=== PATIENT | male | born 1945 | race Caucasian/White ===

== ENCOUNTER 2018-05-27 12:47 | Inpatient (IN) | payer MEDICARE, OTHER ==
[~2018-05-27] VITALS: Ht 182.9 cm; Wt 92.5 kg
[~2018-05-27 12:47] MED LIST: NKM; NORCO 5-325 TA1 EACH ORAL
--- NOTE | 2018-05-27 12:56 | NUR ---
ED Nurse Note: ambulated in to ER due to SOB x few days. Pt denies any hx of asthma and COPD. Pt states that he smokes. Pt is able to complete full sentences without any distress. RA 96%. No labor breathing noted. Addendum: 05/27/18 at 1451 by [email or web address] ED Nurse Note: ambulated in to ER due to SOB x few days. Pt states that he smokes. Pt is able to complete full sentences without any distress. RA 96%. No labor breathing noted.
[2018-05-27] MEDS ORDERED: UNOBMED (12:58)
[2018-05-27 13:02] VITALS: BP 199/115
--- NOTE | 2018-05-27 13:12 | NUR ---
ED Nurse Note: Pt is concerning about his car parked at [place] near [facility]. ERMD aware. Per MANJULA, pt can step outside and repark his car and come back to draw blood. No s/s of distress and denies CP. Pt ambulated with steady gait with JEREMIAH Baron Tech.
[2018-05-27] MEDS ORDERED: Albuterol ud Inhalation HHN ONE (13:15)
[2018-05-27] MEDS ORDERED: Ipratropium 0.02% Inh Soln 2.5ml UD HHN ONE (13:15)
[2018-05-27] MEDS ORDERED: Solu-MEDROL 125mg Inj IVP ONE (13:15)
--- NOTE | 2018-05-27 13:19 | Emergency Room Report ---
History of Present Illness General Chief Complaint: Dyspnea/Respdistress Source: Patient, Medical Record Present Illness HPI Patient presents with increased shortness of breath and dyspnea on exertion. He denies any chest pain. This has been progressing over several weeks. He still smokes. Denies any fevers or productive cough at this time. He denies edema or calf pain also. He gets weak when he gets short of breath. He denies any nausea or vomiting. He has some dribbling when he urinates. There is no dysuria. He's had some loose stools but is been moving his bowels without difficulty recently. He feels quite depressed because he is living in his car. He does not have an inhaler. The patient also has a history of vocal cord tumor. He speaks with hoarseness. He has no difficulty swallowing. The patient has a history of hypertension also. He's not taking medication at this time. The patient has a history of hepatitis C that's been treated at [facility]. He states he has been cured. Denies recent trauma or joint pain. Chronic rashes on his hands. 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 Reviewed Nursing Documentation: PMH: Agreed; PSxH: Agreed Nursing Documentation-PM Past Medical History: No History, Except For Hx Hypertension: Yes Review of Systems All Other Systems: negative except mentioned in HPI Physical Exam Vital Signs Date Time Temp Pulse Resp B/P (MAP) Pulse Ox O2 Delivery O2 Flow Rate FiO2 05/27/18 12:56 98.1 94 26 199/115 96 Room Air Sp02 EP Interpretation: reviewed, normal General Appearance: no apparent distress, GCS 15, other, Chronically Ill Head: normocephalic Eyes: bilateral eye normal inspection, bilateral eye PERRL, bilateral eye Scleral Injection, bilateral eye other - Disconjugate gaze ENT: moist mucus membranes, other - Hoarseness Neck: supple, other - No stridor Respiratory: wheezing, expiration Cardiovascular #1: regular rate, rhythm, no edema Cardiovascular #2: 2+ radial (R) Gastrointestinal: normal inspection, normal bowel sounds, non tender, no mass, non-distended Musculoskeletal: back normal, gait/station normal, normal range of motion, no calf tenderness Neurologic: alert, oriented x3, grossly normal Psychiatric: depressed affect Skin: normal inspection, warm/dry, other - Sun changes bilaterally hands Medical Decision Making Diagnostic Impression: Primary Impression: COPD exacerbation Additional Impressions: UTI (urinary tract infection) Qualified Codes: N39.0 - Urinary tract infection, site not specified HTN (hypertension) Qualified Codes: I10 - Essential (primary) hypertension ER Course Patient presents with increased dyspnea, wheezing and dyspnea on exertion. Differential includes acute myocardial infarction, acute coronary syndrome, exacerbation of COPD, bronchitis, pneumonia amongst others. He will be evaluated with EKG, chest x-ray and labs. He will be treated with Solu-Medrol and breathing treatments. Also he will be his supplied with a nicotine patch. EKG without injury, PVC. CXR atelectasis L>R. Normal WBC. Pyuria. Rocephin given. Also ordered Carvedilol. BP slightly improved. Breathing better. Still with NIEVES. He is concerned about lack of being able to smoke. (Nicotine patch applied.) Admit med Dr. Astorga. Will need Ornament Stapler consult. Laboratory Tests Test 05/27/18 13:25 White Blood Count 7.1 K/UL (4.8-10.8) Red Blood Count 6.43 M/UL (4.70-6.10) H Hemoglobin 17.4 G/DL (14.2-18.0) Hematocrit 55.6 % (42.0-52.0) H Mean Corpuscular Volume 86 FL (80-99) Mean Corpuscular Hemoglobin 27.1 PG (27.0-31.0) Mean Corpuscular Hemoglobin Concent 31.4 G/DL (32.0-36.0) L Red Cell Distribution Width 13.7 % (11.6-14.8) Platelet Count 177 K/UL (150-450) Mean Platelet Volume 7.9 FL (6.5-10.1) Neutrophils (%) (Auto) 68.2 % (45.0-75.0) Lymphocytes (%) (Auto) 20.8 % (20.0-45.0) Monocytes (%) (Auto) 8.3 % (1.0-10.0) Eosinophils (%) (Auto) 1.8 % (0.0-3.0) Basophils (%) (Auto) 1.0 % (0.0-2.0) Prothrombin Time 10.8 SEC (9.30-11.50) Prothrombin Time INR 1.0 (0.9-1.1) PTT 29 SEC (23-33) Urine Color Yellow Urine Appearance Slightly cloudy Urine pH 5 (4.5-8.0) Urine Specific [place] 1.025 (1.005-1.035) Urine Protein 1+ (NEGATIVE) H Urine Glucose (UA) Negative (NEGATIVE) Urine Ketones Negative (NEGATIVE) Urine Blood 1+ (NEGATIVE) H Urine Nitrite Positive (NEGATIVE) H Urine Bilirubin Negative (NEGATIVE) Urine Urobilinogen Normal MG/DL (0.0-1.0) Urine Leukocyte Esterase 2+ (NEGATIVE) H Urine RBC 2-4 /HPF (0 - 0) H Urine WBC 40-60 /HPF (0 - 0) H Urine Squamous Epithelial Cells Occasional /LPF Urine Bacteria Many /HPF (NONE) H Sodium Level 144 MMOL/L (136-145) Potassium Level 4.0 MMOL/L (3.5-5.1) Chloride Level 108 MMOL/L (98-107) H Carbon Dioxide Level 28 MMOL/L (21-32) Anion Gap 8 mmol/L (5-15) Blood Urea Nitrogen 14 mg/dL (7-18) Creatinine 0.8 MG/DL (0.55-1.30) Estimate Glomerular Filtration Rate mL/min (>60) Glucose Level 111 MG/DL (74-106) H Lactic Acid Level 1.10 mmol/L (0.4-2.0) Calcium Level 8.8 MG/DL (8.5-10.1) Magnesium Level 2.0 MG/DL (1.8-2.4) Total Bilirubin 1.4 MG/DL (0.2-1.0) H Direct Bilirubin 0.2 MG/DL (0.0-0.3) Aspartate Amino Transferase (AST) 18 U/L (15-37) Alanine Aminotransferase (ALT) 24 U/L (12-78) Alkaline Phosphatase 85 U/L (46-116) Total Creatine Kinase 80 U/L (26-308) Troponin I 0.038 ng/mL (0.000-0.056) Pro-B-Type Natriuretic Peptide 1068 pg/mL (0-125) H Total Protein 7.6 G/DL (6.4-8.2) Albumin 3.8 G/DL (3.4-5.0) Globulin 3.8 g/dL Albumin/Globulin Ratio 1.0 (1.0-2.7) Urine Opiates Screen Negative (NEGATIVE) Urine Barbiturates Screen Negative (NEGATIVE) Phencyclidine (PCP) Screen Negative (NEGATIVE) Urine Amphetamines Screen Negative (NEGATIVE) Urine Benzodiazepines Screen Negative (NEGATIVE) Urine Cocaine Screen Negative (NEGATIVE) Urine Marijuana (THC) Screen Negative (NEGATIVE) EKG Diagnostic Results Rate: normal Rhythm: NSR ST Segments: no acute changes - bifascicular block Rhythm Strip Diag. Results EP Interpretation: yes Rhythm: NSR, other - PVC, rate 93 Chest X-Ray Diagnostic Results Chest X-Ray Diagnostic Results : Chest X-Ray Ordered: Yes # of Views/Limited/Complete: 1 View Indication: Shortness of Breath EP Interpretation: Yes Interpretation: no effusion, no pneumothorax, other - COPD and atelectasis L >R Impression: Other Electronically Signed by: Electronically signed by Garth Michelle MD Last Vital Signs Date Time Temp Pulse Resp B/P (MAP) Pulse Ox O2 Delivery O2 Flow Rate FiO2 05/28/18 00:20 167/100 05/27/18 22:56 95 18 97 Room Air 21 05/27/18 20:00 98.9 Status: improved Disposition: ADMITTED INPATIENT Condition: Serious Garth Michelle MD May 27, 2018 13:19
--- NOTE | 2018-05-27 13:22 | NUR ---
ED Nurse Note: pt is back safely with JEREMIAH Baron and now resting in bed. Xray at the bedside. Will collect the blood specimen.
[2018-05-27 13:45] LABS: EOSINOPHILS % (AUTO) 1.8 % (0.0-3.0); HEMATOCRIT 55.6 % (42.0-52.0); HEMOGLOBIN 17.4 G/DL (14.2-18.0); LYMPHOCYTES % (AUTO) 20.8 % (20.0-45.0); MEAN CORPUSCULAR VOLUME 86 FL (80-99); MONOCYTES % (AUTO) 8.3 % (1.0-10.0); NEUTROPHILS % (AUTO) 68.2 % (45.0-75.0); PLATELET COUNT 177 K/UL (150-450); RED BLOOD COUNT 6.43 M/UL (4.70-6.10); RED CELL DISTRIBUTION WIDTH 13.7 % (11.6-14.8); WHITE BLOOD COUNT 7.1 K/UL (4.8-10.8)
[2018-05-27 13:46] LABS: APPEARANCE,URINE SLIGHTLY CLOUDY; BILIRUBIN, URINE NEGATIVE (NEGATIVE); GLUCOSE, URINE (UA) NEGATIVE (NEGATIVE); KETONES,URINE NEGATIVE (NEGATIVE); LEUKOCYTE ESTERASE ,URINE 2+ (NEGATIVE); NITRITE,URINE POSITIVE (NEGATIVE); PH,URINE 5 (4.5-8.0); PROTEIN,URINE 1+ (NEGATIVE); UROBILINOGEN,URINE NORMAL MG/DL (0.0-1.0)
[2018-05-27 13:55] LABS: COLOR,URINE YELLOW
[2018-05-27 13:56] LABS: ANION GAP 8 mmol/L (5-15); BLOOD UREA NITROGEN 14 mg/dL (7-18); CALCIUM 8.8 MG/DL (8.5-10.1); CARBON DIOXIDE 28 MMOL/L (21-32); CHLORIDE 108 MMOL/L (98-107); CREATININE 0.8 MG/DL (0.55-1.30); SODIUM 144 MMOL/L (136-145)
--- NOTE | 2018-05-27 14:00 | Diagnostic Imaging Report ---
EXAM: XR Chest, 1 View CLINICAL HISTORY: DYSPNEA TECHNIQUE: Frontal view of the chest. COMPARISON: No relevant prior studies available. FINDINGS: Lungs: Mildly increased interstitial markings in bilateral lung bases. The lungs are otherwise clear. Pleural space: Unremarkable. The costophrenic angles are sharp. No visible pneumothorax. Heart: Unremarkable. No cardiomegaly. Mediastinum: Unremarkable. Bones/joints: Unremarkable. Vasculature: Atherosclerotic calcifications are noted within the aortic arch. Tubes, lines and devices: Telemetry leads overlie the thorax. IMPRESSION: Mildly increased interstitial markings in bilateral lung bases. This may be related to chronic senescent changes versus mild subsegmental atelectasis or mild interstitial pneumonitis.
--- NOTE | 2018-05-27 14:02 | NUR ---
ED Nurse Note: contacted pharmacy for Coreg. Per clinical pharmacy specialist, they are preparing the medication right now. will follow up
[2018-05-27 14:12] LABS: ALANINE AMINOTRANSFERASE 24 U/L (12-78); ALBUMIN 3.8 G/DL (3.4-5.0); ALKALINE PHOSPHATASE 85 U/L (46-116); ASPARTATE AMINO TRANSFERASE 18 U/L (15-37); BILIRUBIN,TOTAL 1.4 MG/DL (0.2-1.0); CREATINE KINASE 80 U/L (26-308)
[2018-05-27 14:13] LABS: BILIRUBIN,DIRECT 0.2 MG/DL (0.0-0.3)
[2018-05-27] MEDS ORDERED: cefTRIAXone 1 GM in NS 55 ML IVPB ONE (14:15)
[2018-05-27] MEDS ORDERED: Carvedilol 6.25mg Tab ORAL ONE (14:15)
[2018-05-27 15:23] VITALS: BP 138/85
--- NOTE | 2018-05-27 15:24 | NUR ---
ED Nurse Note: telephone report given to SARATH Zhong. Per pt, he does not take any medications at home.
--- NOTE | 2018-05-27 15:34 | NUR ---
TRANSFER TO FLOOR: Patient transferred to #[id number] as ordered via wheelchair with JEREMIAH Baron Tech. Report given to SARATH Butts. Belongings given to pt. No s/s of distress.
--- NOTE | 2018-05-27 15:45 | NUR ---
NURSE NOTES: Received patient from ER via Wheel chair. patient is alert and oriented x4. Patient's o2sat is 89-91 % on room air. Patient refused oxygen and noted with dry cough. Patient states that he smokes 2 packs of cigarette. Noted with rhonchi. Will continue to monitor. Belongings checked by RN and patient. All belongings accounted for. Patient states that he lives in his car and he has been living in his car about a year and he wants to get stuff from his car that parked in front of the hospital building. RN explained to the patient about policy and need to wait for doctor. Patient agreed. Patient refused whole body assessment @ this time. Rn noticed that patient has some yellowish dry stuff on his right palm. Patient does not know why it happened. Noted with Nicotin patch.Orientation given about the unit, meal time, smoking policy,call light use, etc. Bed is in low position and locked. Call light and personnel items within reach. Patient has $45.00 desouza ( 2x$20 and 3x $5) he wants to keep it with him.Dr. Astorga was paged and waiting for return call.will continue plan of care.
[2018-05-27 16:00] VITALS: BP 145/81
--- NOTE | 2018-05-27 17:04 | Pulmonology Progress Note ---
Assessment/Plan Assessment/Plan Pulmonary Consultation HPI Patient is a 73 year old man with history of Chronic Obstructive Pulmonary Disease, Previous Vocal Cord Tumor, Hoarseness, Hypertension, Hepatitis C who presents with increased shortness of breath and dyspnea on exertion for a few weeks. He denies any chest pain. He remains a smoker. Denies any fever or productive cough. No edema, calf pain or hemoptysis. No nausea or vomiting. He has some dribbling when he urinates. Denies dysuria. He's had some loose stools but is been moving his bowels without difficulty recently. He lives in his car. He does not have an inhaler. He has no difficulty swallowing. He's not taking medication at this time. PMH: Chronic Obstructive Pulmonary Disease, Previous Vocal Cord Tumor, Hoarseness, Hypertension, Hepatitis C ( previously been treated). Allergies: No Known Allergies All Other Systems: negative except mentioned in HPI Physical Exam Vital Signs Noted Date Time Temp Pulse Resp B/P (MAP) Pulse Ox O2 Delivery O2 Flow Rate FiO2 05/27/18 12:56 98.1 94 26 199/115 96 Room Air General Appearance: no apparent distress, GCS 15, Chronically Ill Head: normocephalic Eyes: bilateral eye normal inspection, bilateral eye PERRL, bilateral eye Scleral Injection, bilateral eye other - Disconjugate gaze ENT: moist mucus membranes, other - Hoarseness Neck: supple, other - No stridor Respiratory: wheezing, expiration Cardiovascular: HS1, HS2, normal, regular rate, rhythm, no edema Gastrointestinal: normal inspection, normal bowel sounds, non tender, no mass, non-distended Musculoskeletal: back normal, gait/station normal, normal range of motion, no calf tenderness Neurologic: alert, oriented x3, grossly normal Psychiatric: depressed affect Skin: normal inspection, warm/dry, other - Sun changes bilaterally hands Impression: Chronic Obstructive Pulmonary Disease exacerbation Possible Pneumonia UTI (urinary tract infection) Hypertension) Previous Vocal Cord Tumor/Hoarseness Previously Treated Hepatitis C Plan IV Solumedrol HHN O2 PRN IV 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 Urine Pyuria, positive Nitrite Rocephin given. EKG: Rate: normal Rhythm: NSR ST Segments: no acute changes - bifascicular block Chest X-Ray : no effusion, no pneumothorax, other - COPD and atelectasis vs infiltrates L>R Subjective ROS Limited/Unobtainable: Yes Respiratory: Reports: shortness of breath Allergies: Coded Allergies: No Known Allergies (Unverified , 01/29/13) Objective Last 24 Hour Vital Signs Date Time Temp Pulse Resp B/P (MAP) Pulse Ox O2 Delivery O2 Flow Rate FiO2 05/27/18 15:36 98.1 81 25 138/85 91 Room Air 05/27/18 15:23 98.1 81 25 138/85 91 Room Air 05/27/18 14:16 82 164/97 05/27/18 13:40 89 16 95 Room Air 21 05/27/18 13:40 89 16 Room Air 21 05/27/18 13:05 101 21 Room Air 05/27/18 13:02 98.1 101 21 199/115 96 Room Air 05/27/18 12:56 98.1 94 26 199/115 96 Room Air Laboratory Tests 05/27/18 13:25: White Blood Count 7.1, Red Blood Count 6.43H, Hemoglobin 17.4, Hematocrit 55.6H , Mean Corpuscular Volume 86, Mean Corpuscular Hemoglobin 27.1, Mean Corpuscular Hemoglobin Concent 31.4L, Red Cell Distribution Width 13.7, Platelet Count 177, Mean Platelet Volume 7.9, Neutrophils (%) (Auto) 68.2, Lymphocytes (%) (Auto) 20.8, Monocytes (%) (Auto) 8.3, Eosinophils (%) (Auto) 1.8, Basophils (%) (Auto) 1.0, Prothrombin Time 10.8, Prothromb Time International Ratio 1.0, Activated Partial Thromboplast Time 29, Urine Color Yellow, Urine Appearance Slightly cloudy, Urine pH 5, Urine Specific [place] 1.025, Urine Protein 1+H, Urine Glucose (UA) Negative, Urine Ketones Negative, Urine Blood 1+H, Urine Nitrite PositiveH, Urine Bilirubin Negative, Urine Urobilinogen Normal, Urine Leukocyte Esterase 2+H, Urine RBC 2-4H, Urine WBC 40- 60H, Urine Squamous Epithelial Cells Occasional, Urine Bacteria ManyH, Sodium Level 144, Potassium Level 4.0, Chloride Level 108H, Carbon Dioxide Level 28, Anion Gap 8, Blood Urea Nitrogen 14, Creatinine 0.8, Estimat Glomerular Filtration Rate , Glucose Level 111H, Lactic Acid Level 1.10, Calcium Level 8.8 , Magnesium Level 2.0, Total Bilirubin 1.4H, Direct Bilirubin 0.2, Aspartate Amino Transf (AST/SGOT) 18, Alanine Aminotransferase (ALT/SGPT) 24, Alkaline Phosphatase 85, Total Creatine Kinase 80, Troponin I 0.038, Pro-B-Type Natriuretic Peptide 1068H, Total Protein 7.6, Albumin 3.8, Globulin 3.8, Albumin /Globulin Ratio 1.0, Urine Opiates Screen Negative, Urine Barbiturates Screen Negative, Phencyclidine (PCP) Screen Negative, Urine Amphetamines Screen Negative, Urine Benzodiazepines Screen Negative, Urine Cocaine Screen Negative, Urine Marijuana (THC) Screen Negative Current Medications Medications (Trade) Dose Ordered Sig/Demetrius Route PRN Reason Start Time Stop Time Status Last Admin Dose Admin Nicotine (Nicoderm) 1 patch Q24H TDERMAL 05/27/18 13:30 06/26/18 13:29 05/27/18 13:37 Garth Mcmillan MD May 27, 2018 17:04
[2018-05-27] MEDS ORDERED: Albuterol/Ipratropium 3ml neb HHN PRN (17:45)
[2018-05-27] MEDS ORDERED: Acetaminophen 500mg (ES) tab ORAL PRN (17:45)
--- NOTE | 2018-05-27 17:45 | NUR ---
NURSE NOTES: Received admission orders from Dr. astorga. All orders verified and carried out. Per Dr. Astorga, patient can go out to his car accompanied by staff.
--- NOTE | 2018-05-27 17:46 | NUR ---
NURSE NOTES: Dr. larsen aware of episodes of elevated BP in ER with order to give clonidine PRN but no other blood pressure med for now.Will continue t o monitor.
--- NOTE | 2018-05-27 17:53 | NUR ---
NURSE NOTES: Placed call to Dr. Amilcar Gary and left message for consult to UTI and yellowish crusty stuff on right hand (palm).
--- NOTE | 2018-05-27 19:44 | NUR ---
HAND-OFF: Report given to Jordyn.
--- NOTE | 2018-05-27 19:54 | NUR ---
NURSE NOTES: Received orders from Dr. Mcmillan and all orders read back,verified and carried out.
[2018-05-27 20:00] VITALS: BP 167/100
--- NOTE | 2018-05-27 20:45 | NUR ---
NURSE NOTES: RECIEVED PT. IN BED ALERT AND ORIENTED NO S/S OF DISTRESS NOTED @ TIME .CALL LIGHT WITH IN REACH .INSTRUCTED TO CALL FOR ANY ASSISTANCE VERBALIZES UNDERSTANDING.WILL CONTINUE W/ PLAN OF CARE.
[2018-05-27] MEDS: Doxycycline Hyclate 100 MG in D5W 110 ML IV SCH (21:26)
[2018-05-27] MEDS: Heparin 5000 units/ml inj SUBQ SCH (21:27)
[2018-05-27] MEDS: Albuterol/Ipratropium 3ml neb HHN SCH (22:48)
[2018-05-28] VITALS: BP 169/103
[2018-05-28] MEDS: Solu-MEDROL 40mg Inj IVP SCH ×5 (00:02→23:37)
[2018-05-28] MEDS: Albuterol/Ipratropium 3ml neb HHN SCH ×6 (02:50→23:20)
[2018-05-28 04:00] VITALS: BP 140/99
[2018-05-28 07:06] LABS: BASOPHILS % (AUTO) 0.3 % (0.0-2.0); HEMATOCRIT 49.5 % (42.0-52.0); LYMPHOCYTES % (AUTO) 10.6 % (20.0-45.0); MEAN CORPUSCULAR VOLUME 87 FL (80-99); MONOCYTES % (AUTO) 4.4 % (1.0-10.0); NEUTROPHILS % (AUTO) 84.7 % (45.0-75.0); PLATELET COUNT 161 K/UL (150-450); RED BLOOD COUNT 5.71 M/UL (4.70-6.10); RED CELL DISTRIBUTION WIDTH 13.6 % (11.6-14.8); WHITE BLOOD COUNT 7.2 K/UL (4.8-10.8)
[2018-05-28 07:18] LABS: ANION GAP 8 mmol/L (5-15); BLOOD UREA NITROGEN 16 mg/dL (7-18); CALCIUM 8.8 MG/DL (8.5-10.1); CARBON DIOXIDE 27 MMOL/L (21-32); CHLORIDE 108 MMOL/L (98-107); CREATININE 0.9 MG/DL (0.55-1.30); POTASSIUM 4.1 MMOL/L (3.5-5.1); SODIUM 143 MMOL/L (136-145)
--- NOTE | 2018-05-28 07:20 | NUR ---
HAND-OFF: Report given to ADAM CLEMENS.
--- NOTE | 2018-05-28 07:30 | NUR ---
NURSE NOTES: Received patient in bed, awake, alert and orientedx4. On room air noted with dry cough but no wheezing or congestion @ this time. No s/s of hypertension. Denies any pain or discomfort @ this time. Tolerated well to food. IV intact, no s/s of infiltration. Bed is in low position and locked. Call light and personnel items within reach. Will continue plan of care.
[2018-05-28 08:00] VITALS: BP 152/95
[2018-05-28] MEDS: Heparin 5000 units/ml inj SUBQ SCH ×2 (09:02→21:28)
[2018-05-28] MEDS: Doxycycline Hyclate 100 MG in D5W 110 ML IV SCH ×3 (09:02→21:26)
--- NOTE | 2018-05-28 11:01 | NUR ---
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 HTN . UTI VS: BP 199/115, P 101, T 98.1, RR 26, SpO2 96 RBC 6.43, HCT 55.6, URINE: BACTERIA MANY, PROTEIN 1+, NITRATE POSITIVE, BLOOD 1+ CXR IMPRESSION: Mildly increased interstitial markings in bilateral lung bases. IS:SOLU-MEDROL 125mg IVP ATROVENT 500mcg HHN PROVENTIL 5mg HHN COREG 6.25mg CEFTRIAXONE 55ml IVPB ADMITTED TO MED/SURG DCP: RETURN HOME
[2018-05-28 12:00] VITALS: BP 156/99
[2018-05-28] MEDS ORDERED: cefTRIAXone 1 GM in D5W 55 ML IVPB SCH (14:00)
--- NOTE | 2018-05-28 14:03 | NUR ---
NURSE NOTES: Patient was seen by Dr. Astorga and Dr. Miguelito Gary. Dr. Gary is aware of right hand skin issue. Patient stated that there was callus in the past. Dr. Astorga denied to order sleeping pills due to patient's respiratory symptoms but ordered Norvasc 5mg daily for elevated BP. Order read back and carried out.
[2018-05-28 16:00] VITALS: BP 160/89
[2018-05-28] MEDS ORDERED: Tubing IV Secondary IV ONE (16:46)
[2018-05-28] MEDS ORDERED: NS 275ml ONE (16:46)
--- NOTE | 2018-05-28 17:15 | Consultation ---
DATE OF CONSULTATION: 05/28/2018 INFECTIOUS DISEASE CONSULTATION PRIMARY ATTENDING: Bola Astorga M.D. REASON FOR CONSULTATION: UTI and COPD exacerbation. HISTORY OF PRESENT ILLNESS: A 73-year-old white male admitted yesterday with shortness of breath and productive cough. The patient is a heavy smoker smoking two packs of cigarettes a day, developed shortness of breath and has productive cough. Also, complains of hoarseness, has dribbling of urine, and states that he has no control of urine, has some mild incontinence. PAST MEDICAL HISTORY: Likely COPD, hypertension, treated hepatitis C, hoarseness, decrease in hearing. ALLERGIES: No known drug allergies. MEDICATIONS: Ceftriaxone, methylprednisone, albuterol and ipratropium inhaler, heparin, doxycycline, clonidine, Tylenol, and nicotine patch. SOCIAL HISTORY: He lives in a car. He is homeless. He states he is not , has nobody. Heavy smoking. No alcohol or drug abuse. PHYSICAL EXAMINATION: VITAL SIGNS: Temperature 98.5 degrees, pulse 82, and blood pressure 152/95. GENERAL APPEARANCE: No acute distress. HEAD AND NECK: [place] conjunctivae. Slightly dry mouth. HEART: Regular. LUNGS: Clear. Decreased sounds. ABDOMEN: Soft, nontender. EXTREMITIES: He has no edema. Onychomycosis in the fingers and finger clubbing. LABORATORY AND DIAGNOSTIC DATA: WBC is 7.2, hemoglobin 16, hematocrit 49.5, and platelet is 161,000. Sodium 143, potassium 4.1, chloride 108, bicarbonate 27, BUN 16, creatinine 0.9, glucose 138, total bilirubin is 1.4. Urine culture growing gram-negative rods. UA showed wbc of 40 to 60, nitrite positive, and leukocyte esterase 2+. IMPRESSION: Pyuria and urinary tract infection. The patient will likely have also prostatic hypertrophy, has chronic obstructive pulmonary disease with exacerbation, nicotine dependence, hypertension, and hoarseness. He is homeless. RECOMMENDATION: We will continue with doxycycline and ceftriaxone. Needs ENT evaluation. The patient declined to have pneumonia and flu shot at this time. At the end of my exam, I thank Dr. Astorga for involving me in the care of this patient. Miguelito Gary M.D. DR: Lisa JOB#: [id number] CC:
--- NOTE | 2018-05-28 18:33 | Pulmonology Progress Note ---
Assessment/Plan Assessment/Plan Pulmonary Progress Noted HPI Patient is a 73 year old man with history of Chronic Obstructive Pulmonary Disease, Previous Vocal Cord Tumor, Hoarseness, Hypertension, Hepatitis C who presents with increased shortness of breath and dyspnea on exertion for a few weeks. He denies any chest pain. He remains a smoker. Denies any fever or productive cough. No edema, calf pain or hemoptysis. No nausea or vomiting. He has some dribbling when he urinates. Denies dysuria. He's had some loose stools but is been moving his bowels without difficulty recently. He lives in his car. He does not have an inhaler. He has no difficulty swallowing. Less SOB. He's not taking medication at this time. PMH: Chronic Obstructive Pulmonary Disease, Previous Vocal Cord Tumor, Hoarseness, Hypertension, Hepatitis C ( previously been treated). Allergies: No Known Allergies All Other Systems: negative except mentioned in HPI Physical Exam Vital Signs Noted Date Time Temp Pulse Resp B/P (MAP) Pulse Ox O2 Delivery O2 Flow Rate FiO2 05/27/18 12:56 98.1 94 26 199/115 96 Room Air General Appearance: no apparent distress, GCS 15, Chronically Ill Head: normocephalic Eyes: bilateral eye normal inspection, bilateral eye PERRL, bilateral eye Scleral Injection, bilateral eye other - Disconjugate gaze ENT: moist mucus membranes, other - Hoarseness Neck: supple, other - No stridor Respiratory: wheezing, expiration Cardiovascular: HS1, HS2, normal, regular rate, rhythm, no edema Gastrointestinal: normal inspection, normal bowel sounds, non tender, no mass, non-distended Musculoskeletal: back normal, gait/station normal, normal range of motion, no calf tenderness Neurologic: alert, oriented x3, grossly normal Psychiatric: depressed affect Skin: normal inspection, warm/dry, other - Sun changes bilaterally hands Impression: Chronic Obstructive Pulmonary Disease exacerbation Possible Pneumonia UTI (urinary tract infection) Hypertension) Previous Vocal Cord Tumor/Hoarseness Previously Treated Hepatitis C Plan IV Solumedrol HHN O2 PRN IV Antbiotics: Rocephin /Azithro ONLINE MEDIA BU[employer]ER Medications PPX Nicotine patch. Urine Pyuria, positive Nitrite Rocephin given. EKG: Rate: normal Rhythm: NSR ST Segments: no acute changes - bifascicular block Chest X-Ray : Mildly increased interstitial markings in bilateral lung bases. This may be related to chronic senescent changes versus mild subsegmental atelectasis or mild interstitial pneumonitis. Subjective ROS Limited/Unobtainable: No Allergies: Coded Allergies: No Known Allergies (Unverified , 01/29/13) Objective Last 24 Hour Vital Signs Date Time Temp Pulse Resp B/P (MAP) Pulse Ox O2 Delivery O2 Flow Rate FiO2 05/28/18 16:00 98.1 75 17 160/89 (112) 94 05/28/18 15:45 78 160/89 05/28/18 14:48 Room Air 21 05/28/18 14:48 Room Air 21 05/28/18 12:00 98.9 89 20 156/99 (118) 92 05/28/18 10:57 82 18 99 Room Air 21 05/28/18 10:44 77 20 97 Room Air 21 05/28/18 09:00 Room Air 05/28/18 08:00 98.5 88 20 152/95 (114) 92 05/28/18 06:58 80 20 99 Room Air 05/28/18 06:47 68 18 96 Room Air 21 05/28/18 04:00 98.9 79 18 140/99 (113) 93 05/28/18 02:59 75 18 98 Room Air 21 05/28/18 02:50 72 18 95 Room Air 21 05/28/18 00:20 167/100 05/28/18 00:00 97.2 98 18 169/103 (125) 93 05/27/18 22:56 95 18 97 Room Air 05/27/18 22:48 92 18 Room Air 05/27/18 22:48 92 18 95 Room Air 05/27/18 21:00 Room Air 05/27/18 20:00 98.9 97 20 167/100 (122) 92 Intake and Output 05/27/18 05/28/18 19:00 07:00 Intake Total 55 ml 470 ml Balance 55 ml 470 ml Intake Oral 360 ml IV Total 55 ml 110 ml # Voids 3 Microbiology Date/Time Source Procedure Growth Status 05/27/18 13:25 Urine,Clean Catch Urine Culture - Preliminary Gram Negative Ravin Resulted Laboratory Tests 05/28/18 06:17: White Blood Count 7.2, Red Blood Count 5.71, Hemoglobin 16.0, Hematocrit 49.5, Mean Corpuscular Volume 87, Mean Corpuscular Hemoglobin 27.9, Mean Corpuscular Hemoglobin Concent 32.3, Red Cell Distribution Width 13.6, Platelet Count 161, Mean Platelet Volume 9.3, Neutrophils (%) (Auto) 84.7H, Lymphocytes (%) (Auto) 10.6L, Monocytes (%) (Auto) 4.4, Eosinophils (%) (Auto) 0.0, Basophils (%) (Auto ) 0.3, Sodium Level 143, Potassium Level 4.1, Chloride Level 108H, Carbon Dioxide Level 27, Anion Gap 8, Blood Urea Nitrogen 16, Creatinine 0.9, Estimat Glomerular Filtration Rate , Glucose Level 138H, Calcium Level 8.8 Current Medications Medications (Trade) Dose Ordered Sig/Demetrius Route PRN Reason Start Time Stop Time Status Last Admin Dose Admin Acetaminophen (Tylenol) 500 mg Q4H PRN ORAL Mild Pain/Temp > 100.5 05/27/18 17:45 06/26/18 17:44 Albuterol/ Ipratropium (Albuterol/ Ipratropium) 3 ml Q4H PRN HHN Shortness of Breath 05/27/18 17:45 06/01/18 17:44 Albuterol/ Ipratropium (Albuterol/ Ipratropium) 3 ml Q4HRT HHN 05/27/18 23:00 06/01/18 22:59 05/28/18 10:44 Amlodipine Besylate (Norvasc) 5 mg DAILY ORAL 05/29/18 09:00 06/28/18 08:59 Ceftriaxone Sodium 1 gm/ Dextrose 55 ml @ 110 mls/hr Q24H IVPB 05/28/18 14:00 06/04/18 13:59 05/28/18 15:15 Clonidine HCl (Catapres Tab) 0.1 mg Q6H PRN ORAL For High Blood Pressure 05/27/18 17:45 06/26/18 17:44 05/28/18 00:20 Doxycycline Hyclate 100 mg/ Dextrose 110 ml @ 110 mls/hr Q12HR IV 05/27/18 21:00 06/03/18 20:59 05/28/18 09:02 Heparin Sodium (Porcine) (Heparin 5000 units/ml) 5,000 units EVERY 12 HOURS SUBQ 05/27/18 21:00 06/26/18 20:59 05/28/18 09:02 Methylprednisolone Sodium Succinate (Solu-MEDROL) 40 mg EVERY 6 HOURS IVP 05/28/18 00:00 06/27/18 00:00 05/28/18 18:12 Nicotine (Nicoderm) 1 patch Q24H TDERMAL 05/27/18 13:30 06/26/18 13:29 05/28/18 12:51 Garth Mcmillan MD May 28, 2018 18:33
--- NOTE | 2018-05-28 19:10 | NUR ---
HAND-OFF: Report given to
[2018-05-28 20:00] VITALS: BP 171/107
--- NOTE | 2018-05-28 22:45 | History and Physical Report ---
DATE OF ADMISSION: 05/27/2018 HISTORY OF PRESENT ILLNESS: The patient came in for COPD exacerbation. . The patient is complaining of shortness of breath as well as wheezing and nonproductive cough for three days. The patient is a heavy smoker. He is also homeless. Denies orthopnea. Denies any heart problems. Denies fever or chills. PAST MEDICAL HISTORY: COPD, history of hypertension. FAMILY HISTORY: Noncontributory. SOCIAL HISTORY: History of smoking, history of drug use, and history of alcohol abuse. He is homeless. REVIEW OF SYSTEMS: HEENT: Headaches. RESPIRATORY: Reports shortness of breath, wheezing, and cough for the past three days. CARDIOVASCULAR: Denies chest pain or orthopnea. GASTROINTESTINAL: Denies nausea, vomiting, or diarrhea. Does have occasional heartburn. EXTREMITIES: Denies any significant pain. CENTRAL NERVOUS SYSTEM: No significant changes in vision or speech pattern. PHYSICAL EXAMINATION: VITAL SIGNS: Temperature 98.9, pulse is 89, blood pressure 156/59. HEENT: PERRLA. NECK: Supple. CHEST: Bilateral wheezing. CARDIOVASCULAR: Regular rate and rhythm. No murmurs or extra sounds. GASTROINTESTINAL: Soft, nontender, and nondistended. No organomegaly. EXTREMITIES: No edema. Reflexes on both sides. Moves all four extremities. LABORATORY DATA: WBC of 7.1, hemoglobin 17.4, platelets 177. Sodium 144, potassium 4, BUN of 14, creatinine 0.8, and glucose of 111. ASSESSMENT AND PLAN: 1. COPD exacerbation. 2. Shortness of breath. I have asked Dr. Mcmillan to see the patient for COPD exacerbation and also Dr. Miguelito Gary to rule out bronchitis versus pneumonia. Bola Astorga M.D. DR: Jana JOB#: [id number] CC:
[2018-05-29] VITALS: BP 170/96
[2018-05-29] MEDS: Albuterol/Ipratropium 3ml neb HHN SCH ×6 (03:22→23:10)
[2018-05-29 04:00] VITALS: BP 159/89
[2018-05-29] MEDS: Solu-MEDROL 40mg Inj IVP SCH ×3 (06:08→18:00)
[2018-05-29 06:30] LABS: HEMATOCRIT 49.3 % (42.0-52.0); HEMOGLOBIN 15.8 G/DL (14.2-18.0); MEAN CORPUSCULAR VOLUME 87 FL (80-99); PLATELET COUNT 154 K/UL (150-450); RED BLOOD COUNT 5.66 M/UL (4.70-6.10); RED CELL DISTRIBUTION WIDTH 13.7 % (11.6-14.8); WHITE BLOOD COUNT 9.6 K/UL (4.8-10.8)
[2018-05-29 06:36] LABS: ANION GAP 7 mmol/L (5-15); BLOOD UREA NITROGEN 18 mg/dL (7-18); CALCIUM 8.6 MG/DL (8.5-10.1); CARBON DIOXIDE 30 MMOL/L (21-32); CHLORIDE 106 MMOL/L (98-107); CREATININE 0.9 MG/DL (0.55-1.30); POTASSIUM 4.4 MMOL/L (3.5-5.1); SODIUM 143 MMOL/L (136-145)
--- NOTE | 2018-05-29 07:51 | NUR ---
NURSE NOTES: Patient is awake and alert, patient ate breakfast ,respirations are unlabored,no complaints at this time.Call light within reach.
[2018-05-29 08:22] VITALS: BP 144/94
[2018-05-29] MEDS: Heparin 5000 units/ml inj SUBQ SCH ×2 (08:30→21:09)
--- NOTE | 2018-05-29 09:17 | Consultation ---
History of Present Illness General Date patient seen: May 29, 2018 Time patient seen: 09:00 Chief Complaint: Dyspnea/Respdistress Referring physician: Bola Astorga Reason for Consultation: H/O vocal cord tumor Present Illness Allergies: Coded Allergies: No Known Allergies (Unverified , 01/29/13) Medication History Scheduled Hydrocodone Bit/Acetaminophen 5-325* ([place] 5-325*), 1 TAB ORAL Q6H No Known Medications* (NKM - No Known Medications*), 0 ., (Reported) Miscellaneous Medications Unable to Obtain Medications (Unable To Obtain Meds), (Reported) Patient History History Provided By: Patient Healthcare decision maker patient Resuscitation status Full Code Advanced Directive on File Patient History Narrative 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 He states bx x 2, once 2017 [facility] and 2009 here by unknown MD. NOTE-I looked at records online for [facility], did not see the admission. Both times told not a cancer. He continues to smoke. Review of Systems ENT: Reports: no symptoms, see HPI, ear pain, ear discharge, nose pain, nose congestion, throat pain, throat swelling, mouth pain, hearing loss, nasal discharge, other - Hoarsness Physical Exam Last 24 Hour Vital Signs Date Time Temp Pulse Resp B/P (MAP) Pulse Ox O2 Delivery O2 Flow Rate FiO2 05/29/18 08:29 84 144/94 05/29/18 08:22 97.8 84 18 144/94 (111) 93 05/29/18 07:03 Room Air 05/29/18 07:02 Room Air 05/29/18 04:00 97.8 84 18 159/89 (112) 92 05/29/18 03:32 80 18 100 Room Air 21 05/29/18 03:22 77 18 97 Room Air 05/29/18 01:04 171/107 05/29/18 00:00 98.5 83 18 170/96 (120) 94 05/28/18 23:30 77 18 99 Room Air 21 05/28/18 23:20 70 18 96 Room Air 21 05/28/18 21:00 Room Air 05/28/18 20:00 98.6 81 18 171/107 (128) 92 05/28/18 19:28 79 18 100 Room Air 21 05/28/18 19:21 73 18 97 Room Air 21 05/28/18 16:00 98.1 75 17 160/89 (112) 94 05/28/18 15:45 78 160/89 05/28/18 14:48 Room Air 21 05/28/18 14:48 Room Air 21 05/28/18 12:00 98.9 89 20 156/99 (118) 92 05/28/18 10:57 82 18 99 Room Air 21 05/28/18 10:44 77 20 97 Room Air 21 Intake and Output 05/28/18 05/29/18 19:00 07:00 Intake Total 1115 ml Balance 1115 ml IV Total 165 ml Other 950 ml # Voids 3 Laboratory Tests Test 05/29/18 05:30 White Blood Count 9.6 K/UL (4.8-10.8) Red Blood Count 5.66 M/UL (4.70-6.10) Hemoglobin 15.8 G/DL (14.2-18.0) Hematocrit 49.3 % (42.0-52.0) Mean Corpuscular Volume 87 FL (80-99) Mean Corpuscular Hemoglobin 28.0 PG (27.0-31.0) Mean Corpuscular Hemoglobin Concent 32.1 G/DL (32.0-36.0) Red Cell Distribution Width 13.7 % (11.6-14.8) Platelet Count 154 K/UL (150-450) Mean Platelet Volume 7.8 FL (6.5-10.1) Neutrophils (%) (Auto) % (45.0-75.0) Lymphocytes (%) (Auto) % (20.0-45.0) Monocytes (%) (Auto) % (1.0-10.0) Eosinophils (%) (Auto) % (0.0-3.0) Basophils (%) (Auto) % (0.0-2.0) Differential Total Cells Counted 100 Neutrophils % (Manual) 90 % (45-75) H Lymphocytes % (Manual) 8 % (20-45) L Monocytes % (Manual) 2 % (1-10) Eosinophils % (Manual) 0 % (0-3) Basophils % (Manual) 0 % (0-2) Band Neutrophils 0 % (0-8) Platelet Estimate Adequate Platelet Morphology Normal Red Blood Cell Morphology Normal Sodium Level 143 MMOL/L (136-145) Potassium Level 4.4 MMOL/L (3.5-5.1) Chloride Level 106 MMOL/L (98-107) Carbon Dioxide Level 30 MMOL/L (21-32) Anion Gap 7 mmol/L (5-15) Blood Urea Nitrogen 18 mg/dL (7-18) Creatinine 0.9 MG/DL (0.55-1.30) Estimat Glomerular Filtration Rate mL/min (>60) Glucose Level 148 MG/DL (74-106) H Calcium Level 8.6 MG/DL (8.5-10.1) Height (Feet): 6 Weight (Pounds): 207 Medications Current Medications Medications (Trade) Dose Ordered Sig/Demetrius Route PRN Reason Start Time Stop Time Status Last Admin Dose Admin Acetaminophen (Tylenol) 500 mg Q4H PRN ORAL Mild Pain/Temp > 100.5 05/27/18 17:45 06/26/18 17:44 Albuterol/ Ipratropium (Albuterol/ Ipratropium) 3 ml Q4H PRN HHN Shortness of Breath 05/27/18 17:45 06/01/18 17:44 Albuterol/ Ipratropium (Albuterol/ Ipratropium) 3 ml Q4HRT HHN 05/27/18 23:00 06/01/18 22:59 05/29/18 03:22 Amlodipine Besylate (Norvasc) 5 mg DAILY ORAL 05/29/18 09:00 06/28/18 08:59 05/29/18 08:29 Ceftriaxone Sodium 1 gm/ Dextrose 55 ml @ 110 mls/hr Q24H IVPB 05/28/18 14:00 06/04/18 13:59 05/28/18 15:15 Clonidine HCl (Catapres Tab) 0.1 mg Q6H PRN ORAL For High Blood Pressure 05/27/18 17:45 06/26/18 17:44 05/29/18 01:04 Doxycycline Hyclate 100 mg/ Dextrose 110 ml @ 110 mls/hr Q12HR IV 05/27/18 21:00 06/03/18 20:59 05/28/18 21:26 Heparin Sodium (Porcine) (Heparin 5000 units/ml) 5,000 units EVERY 12 HOURS SUBQ 05/27/18 21:00 06/26/18 20:59 05/29/18 08:30 Methylprednisolone Sodium Succinate (Solu-MEDROL) 40 mg EVERY 6 HOURS IVP 05/28/18 00:00 06/27/18 00:00 05/29/18 06:08 Nicotine (Nicoderm) 1 patch Q24H TDERMAL 05/27/18 13:30 06/26/18 13:29 05/28/18 12:51 Objective Narrative Neck: no palpable nodes Ears: WNL Mouth: WNL Fiberoptic laryngoscopy: left vocal cord tumor-both cords to do move to midline. Assessment/Plan Status: stable Status Narrative Pt. has long history of tumor left TVF which per pt has been bx x 3, both times not cancer. Records NA at this time. Assessment/Plan I recommend CT of neck with and without contrast, which can be done as as outpt. Also, consider additional bx as an outpt. Javier Hendricks MD May 29, 2018 09:17
[2018-05-29 12:00] VITALS: BP 159/106
--- NOTE | 2018-05-29 12:04 | Infectious Diseases Prog Note ---
Assessment/Plan Assessment/Plan IMPRESSION: Pyuria and urinary tract infection. wit E. coli prostatic hypertrophy, chronic obstructive pulmonary disease with exacerbation, nicotine dependence, hypertension, and hoarseness. homeless. RECOMMENDATION: discontinue with doxycycline ceftriaxone. Start on Levaquin Subjective ROS Limited/Unobtainable: Yes Respiratory: Reports: productive cough Cardiovascular: Reports: no symptoms Gastrointestinal/Abdominal: Reports: no symptoms Psychiatric: Reports: other - insomnia Allergies: Coded Allergies: No Known Allergies (Unverified , 01/29/13) Objective Vital Signs Last 24 Hour Vital Signs Date Time Temp Pulse Resp B/P (MAP) Pulse Ox O2 Delivery O2 Flow Rate FiO2 05/29/18 11:31 89 18 98 Room Air 21 05/29/18 11:15 86 18 93 Room Air 21 05/29/18 09:00 Room Air 05/29/18 08:29 84 144/94 05/29/18 08:22 97.8 84 18 144/94 (111) 93 05/29/18 07:03 Room Air 21 05/29/18 07:02 Room Air 05/29/18 04:00 97.8 84 18 159/89 (112) 92 05/29/18 03:32 80 18 100 Room Air 05/29/18 03:22 77 18 97 Room Air 21 05/29/18 01:04 171/107 05/29/18 00:00 98.5 83 18 170/96 (120) 94 05/28/18 23:30 77 18 99 Room Air 21 05/28/18 23:20 70 18 96 Room Air 21 05/28/18 21:00 Room Air 05/28/18 20:00 98.6 81 18 171/107 (128) 92 05/28/18 19:28 79 18 100 Room Air 21 05/28/18 19:21 73 18 97 Room Air 21 05/28/18 16:00 98.1 75 17 160/89 (112) 94 05/28/18 15:45 78 160/89 05/28/18 14:48 Room Air 21 05/28/18 14:48 Room Air 21 Height (Feet): 6 Weight (Pounds): 207 General Appearance: no acute distress HEENT: mucous membranes moist, other - hoarseness Respiratory/Chest: other - few rhonchi Cardiovascular: normal rate Abdomen: soft, non tender Extremities: no edema Neurologic/Psychiatric: alert, oriented x 3, responsive, other - decreased hearing Microbiology Date/Time Source Procedure Growth Status 05/27/18 13:25 Urine,Clean Catch Urine Culture - Final Escherichia Coli Complete Laboratory Tests Test 05/29/18 05:30 White Blood Count 9.6 K/UL (4.8-10.8) Red Blood Count 5.66 M/UL (4.70-6.10) Hemoglobin 15.8 G/DL (14.2-18.0) Hematocrit 49.3 % (42.0-52.0) Mean Corpuscular Volume 87 FL (80-99) Mean Corpuscular Hemoglobin 28.0 PG (27.0-31.0) Mean Corpuscular Hemoglobin Concent 32.1 G/DL (32.0-36.0) Red Cell Distribution Width 13.7 % (11.6-14.8) Platelet Count 154 K/UL (150-450) Mean Platelet Volume 7.8 FL (6.5-10.1) Neutrophils (%) (Auto) % (45.0-75.0) Lymphocytes (%) (Auto) % (20.0-45.0) Monocytes (%) (Auto) % (1.0-10.0) Eosinophils (%) (Auto) % (0.0-3.0) Basophils (%) (Auto) % (0.0-2.0) Differential Total Cells Counted 100 Neutrophils % (Manual) 90 % (45-75) H Lymphocytes % (Manual) 8 % (20-45) L Monocytes % (Manual) 2 % (1-10) Eosinophils % (Manual) 0 % (0-3) Basophils % (Manual) 0 % (0-2) Band Neutrophils 0 % (0-8) Platelet Estimate Adequate Platelet Morphology Normal Red Blood Cell Morphology Normal Sodium Level 143 MMOL/L (136-145) Potassium Level 4.4 MMOL/L (3.5-5.1) Chloride Level 106 MMOL/L (98-107) Carbon Dioxide Level 30 MMOL/L (21-32) Anion Gap 7 mmol/L (5-15) Blood Urea Nitrogen 18 mg/dL (7-18) Creatinine 0.9 MG/DL (0.55-1.30) Estimat Glomerular Filtration Rate mL/min (>60) Glucose Level 148 MG/DL (74-106) H Calcium Level 8.6 MG/DL (8.5-10.1) Current Medications Medications (Trade) Dose Ordered Sig/Demetrius Route PRN Reason Start Time Stop Time Status Last Admin Dose Admin Acetaminophen (Tylenol) 500 mg Q4H PRN ORAL Mild Pain/Temp > 100.5 05/27/18 17:45 06/26/18 17:44 Albuterol/ Ipratropium (Albuterol/ Ipratropium) 3 ml Q4H PRN HHN Shortness of Breath 05/27/18 17:45 06/01/18 17:44 Albuterol/ Ipratropium (Albuterol/ Ipratropium) 3 ml Q4HRT HHN 05/27/18 23:00 06/01/18 22:59 05/29/18 11:15 Amlodipine Besylate (Norvasc) 5 mg DAILY ORAL 05/29/18 09:00 06/28/18 08:59 05/29/18 08:29 Ceftriaxone Sodium 1 gm/ Dextrose 55 ml @ 110 mls/hr Q24H IVPB 05/28/18 14:00 06/04/18 13:59 05/28/18 15:15 Clonidine HCl (Catapres Tab) 0.1 mg Q6H PRN ORAL For High Blood Pressure 05/27/18 17:45 06/26/18 17:44 05/29/18 01:04 Doxycycline Hyclate 100 mg/ Dextrose 110 ml @ 110 mls/hr Q12HR IV 05/27/18 21:00 06/03/18 20:59 05/28/18 21:26 Heparin Sodium (Porcine) (Heparin 5000 units/ml) 5,000 units EVERY 12 HOURS SUBQ 05/27/18 21:00 06/26/18 20:59 05/29/18 08:30 Methylprednisolone Sodium Succinate (Solu-MEDROL) 40 mg EVERY 6 HOURS IVP 05/28/18 00:00 06/27/18 00:00 05/29/18 06:08 Nicotine (Nicoderm) 1 patch Q24H TDERMAL 05/27/18 13:30 06/26/18 13:29 05/28/18 12:51 Miguelito Gary MD May 29, 2018 12:04
[2018-05-29] MEDS ORDERED: Levofloxacin 750mg tab ORAL SCH (13:00)
--- NOTE | 2018-05-29 15:54 | NUR ---
Social Service Note SW and assistant professor of theater met with patient to assess for homelessness. Patient is alert, oriented and verbally responsive. Patient states he has been living in his car for little over a year. 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 Patient receives $1100 a month from social security. The address provided is [address] [place] [address]. Patient states he stays around that area. Patient utilizes hotels to shower. Patient moves his car throughout the week to places he feels safe and familiar. SW discussed [facility] [employer] [place] and provided patient contact information for additional parking and support. Patient was receptive to referral. Patient doesn't utilize shelters. Patient states MD discussed possible short term placement in SNF. SW explained medicare benefits. Patient doesn't have a secondary insurance. SW will refer to [facility] to screen. HUSSAIN contacted [facility] [phone] a homeless marketing traffic coordinator for possible options for placement. [facility] may have availability for placement around $625-$750 a month. [facility] would like to speak with patient for possible placement options. SW and assistant professor of theater will assist patient in completing the [facility] [employer] [employer] SSD/DM Referral form for bridge/interim housing program. APS referral completed [phone] file#[phone]. Patient doesn't have an emergency contact. Patient states he has a dgt however has not been in contact with her for over 30 years and believe may live in [place]. Patient declined SW attempting to locate dgt. Patient doesn't have a medical provider. Will continue to monitor and reassess placement to meet patient's needs upon discharge.
[2018-05-29 16:33] VITALS: BP 175/107
--- NOTE | 2018-05-29 16:42 | NUR ---
NURSE NOTES: Patient state what does he have to live for when he gets out of the hospital,patient state he has no where to live, ,patient ask could he sign himself out of the hospital.reinforce to patient the importance of continuing Doctor care.Will notify Doctor of concern.
--- NOTE | 2018-05-29 18:37 | Pulmonology Progress Note ---
Assessment/Plan Problems: (1) COPD exacerbation (2) UTI (urinary tract infection) (3) Benign neoplasm of vocal cord (4) Chronic hoarseness (5) HTN (hypertension) Assessment/Plan Optimize pulmonary hygiene/mobilize as tolerated PRN O2 RTC and PRN HHN's Dec SM to 40 IV BID and taper Levaquin per ID ENT eval noted Check CT neck with and without contrast Check non-contrast CT chest ABG BP control TTE ordered The importance of abstinence from tobacco use was stressed to patient Continue nicotine patch F/U SW recs DVT Px: Hep SQ Subjective Allergies: Coded Allergies: No Known Allergies (Unverified , 01/29/13) Subjective Events reviewed AFVSS x elevated BP on RA Less cough less SOB no wheezing no FC no CP Has never had a formal pulmonary evaluation Objective Last 24 Hour Vital Signs Date Time Temp Pulse Resp B/P (MAP) Pulse Ox O2 Delivery O2 Flow Rate FiO2 05/29/18 16:40 175/107 05/29/18 16:33 99.0 90 18 175/107 (129) 99 05/29/18 15:16 82 18 97 Room Air 21 05/29/18 15:01 82 18 92 Room Air 21 05/29/18 12:00 98.3 92 19 159/106 (123) 93 05/29/18 11:31 89 18 98 Room Air 21 05/29/18 11:15 86 18 93 Room Air 21 05/29/18 09:00 Room Air 05/29/18 08:29 84 144/94 05/29/18 08:22 97.8 84 18 144/94 (111) 93 05/29/18 07:03 Room Air 21 05/29/18 07:02 Room Air 21 05/29/18 04:00 97.8 84 18 159/89 (112) 92 05/29/18 03:32 80 18 100 Room Air 21 05/29/18 03:22 77 18 97 Room Air 21 05/29/18 01:04 171/107 05/29/18 00:00 98.5 83 18 170/96 (120) 94 05/28/18 23:30 77 18 99 Room Air 21 05/28/18 23:20 70 18 96 Room Air 21 05/28/18 21:00 Room Air 05/28/18 20:00 98.6 81 18 171/107 (128) 92 05/28/18 19:28 79 18 100 Room Air 21 05/28/18 19:21 73 18 97 Room Air 21 Intake and Output 05/28/18 05/29/18 18:59 06:59 Intake Total 1115 ml Balance 1115 ml IV Total 165 ml Other 950 ml # Voids 3 General Appearance: WD/WN, no acute distress HEENT: normocephalic, atraumatic, anicteric, mucous membranes moist Respiratory/Chest: chest wall non-tender, lungs clear - but distnat, normal breath sounds, no respiratory distress, no accessory muscle use Cardiovascular: normal peripheral pulses, normal rate, regular rhythm Abdomen: normal bowel sounds, soft, non tender, no organomegaly, non distended , no mass Extremities: no cyanosis, no clubbing, no edema Microbiology Date/Time Source Procedure Growth Status 05/27/18 13:25 Urine,Clean Catch Urine Culture - Final Escherichia Coli Complete Laboratory Tests 05/29/18 05:30: White Blood Count 9.6, Red Blood Count 5.66, Hemoglobin 15.8, Hematocrit 49.3, Mean Corpuscular Volume 87, Mean Corpuscular Hemoglobin 28.0, Mean Corpuscular Hemoglobin Concent 32.1, Red Cell Distribution Width 13.7, Platelet Count 154, Mean Platelet Volume 7.8, Neutrophils (%) (Auto) , Lymphocytes (%) (Auto) , Monocytes (%) (Auto) , Eosinophils (%) (Auto) , Basophils (%) (Auto) , Differential Total Cells Counted 100, Neutrophils % (Manual) 90H, Lymphocytes % (Manual) 8L, Monocytes % (Manual) 2, Eosinophils % (Manual) 0, Basophils % ( Manual) 0, Band Neutrophils 0, Platelet Estimate Adequate, Platelet Morphology Normal, Red Blood Cell Morphology Normal, Sodium Level 143, Potassium Level 4.4 , Chloride Level 106, Carbon Dioxide Level 30, Anion Gap 7, Blood Urea Nitrogen 18, Creatinine 0.9, Estimat Glomerular Filtration Rate , Glucose Level 148H, Calcium Level 8.6 Current Medications Medications (Trade) Dose Ordered Sig/Demetrius Route PRN Reason Start Time Stop Time Status Last Admin Dose Admin Acetaminophen (Tylenol) 500 mg Q4H PRN ORAL Mild Pain/Temp > 100.5 05/27/18 17:45 06/26/18 17:44 Albuterol/ Ipratropium (Albuterol/ Ipratropium) 3 ml Q4H PRN HHN Shortness of Breath 05/27/18 17:45 06/01/18 17:44 Albuterol/ Ipratropium (Albuterol/ Ipratropium) 3 ml Q4HRT HHN 05/27/18 23:00 06/01/18 22:59 05/29/18 15:01 Amlodipine Besylate (Norvasc) 5 mg DAILY ORAL 05/29/18 09:00 06/28/18 08:59 05/29/18 08:29 Clonidine HCl (Catapres Tab) 0.1 mg Q6H PRN ORAL For High Blood Pressure 05/27/18 17:45 06/26/18 17:44 05/29/18 16:40 Heparin Sodium (Porcine) (Heparin 5000 units/ml) 5,000 units EVERY 12 HOURS SUBQ 05/27/18 21:00 06/26/18 20:59 05/29/18 08:30 Levofloxacin (Levaquin) 750 mg DAILY ORAL 05/30/18 09:00 06/06/18 08:59 Methylprednisolone Sodium Succinate (Solu-MEDROL) 40 mg EVERY 6 HOURS IVP 05/28/18 00:00 06/27/18 00:00 05/29/18 13:00 Nicotine (Nicoderm) 1 patch Q24H TDERMAL 05/27/18 13:30 06/26/18 13:29 05/29/18 13:01 Eddi Ruiz MD May 29, 2018 18:37
[2018-05-29] MEDS ORDERED: Isovue-300 100ml vial INJ PRN (18:45)
--- NOTE | 2018-05-29 19:00 | NUR ---
NURSE NOTES: Patient out of bed,gait is steady,patient want to go out to his car to get belongings,explain to patient would have to get order from Doctor to leave floor.,patient is okay at this time,not to go to his car.Respirations unlabored.
--- NOTE | 2018-05-29 19:15 | Operative Note - Dictated ---
DATE OF OPERATION: 05/29/2018 SURGEON: Javier Hendricks M.D. [employer]IUM [employer]LOR[employer] OPERATOR: None. INDICATION FOR PROCEDURE: COPD, dyspnea, hoarseness, patient who reports a history of a vocal cord nodule. PREOPERATIVE DIAGNOSIS: Vocal cord nodule. POSTOPERATIVE DIAGNOSIS: Vocal cord tumor. PROCEDURE: Fiberoptic laryngoscopy. FINDINGS: Left cord although would move to the midline, it has a mass on it, which is exophytic. It is not smooth like one would see with a nodule, but it is a mass. TECHNIQUE: The patient was prepped and draped in usual manner. All agreed as to the procedure to be done. Passed the scope through the left nostril without difficulty. Able to visualize the vocal cords. Mass noted as in the findings above. Scope was removed. EBL: 0. COMPLICATIONS: None. DRAINS: None. The patient is awake and alert, and stable before, throughout, and after the procedure. Javier Hendricks M.D. DR: KATHLEEN JOB#: [id number] CC:
--- NOTE | 2018-05-29 19:30 | NUR ---
HAND-OFF: Report given to Tyler CLEMENS.
--- NOTE | 2018-05-29 19:31 | NUR ---
CASE MANAGEMENT: REVIEW SI: COPD EXACERBATION . VOCAL CORD NODULE FIBEROPTIC LARYNGOSCOPY 05/29 T 99.0 HR 90 RR 18 BP 175/107 SAT 93% ROOM AIR GLUCOSE 148 IS: LEVAQUIN PO QD SOLU MEDROL IV BID NORVASC PO QD ALBUTEROL HHN MED/SURG STATUS DCP: PATIENT IS FROM HOME PLAN: 2D ECHO
[2018-05-29 20:00] VITALS: BP 160/96
--- NOTE | 2018-05-29 20:00 | NUR ---
NURSE NOTES: Received patient in bed, resting, no s/s of distress. Patient is on NS 2ml, O2 at 96%. Patient denied SOB. Bed is at the lowest position, bed alarms active, side trails up x2, call light within reach. Will continue to monitor.
--- NOTE | 2018-05-29 21:49 | General Progress Note ---
Assessment/Plan Status: progressing Plan: depressed consulted dr levy afebril copd exac is improving no wheezing reviewed chart and labs Subjective ROS Limited/Unobtainable: Yes Allergies: Coded Allergies: No Known Allergies (Unverified , 01/29/13) Objective Last 24 Hour Vital Signs Date Time Temp Pulse Resp B/P (MAP) Pulse Ox O2 Delivery O2 Flow Rate FiO2 05/29/18 20:30 94 05/29/18 20:00 97.7 86 20 160/96 (117) 91 05/29/18 19:37 78 18 96 Room Air 21 05/29/18 19:27 80 18 93 Room Air 21 05/29/18 16:40 175/107 05/29/18 16:33 99.0 90 18 175/107 (129) 99 05/29/18 15:16 82 18 97 Room Air 21 05/29/18 15:01 82 18 92 Room Air 21 05/29/18 12:00 98.3 92 19 159/106 (123) 93 05/29/18 11:31 89 18 98 Room Air 21 05/29/18 11:15 86 18 93 Room Air 21 05/29/18 09:00 Room Air 05/29/18 08:29 84 144/94 05/29/18 08:22 97.8 84 18 144/94 (111) 93 05/29/18 07:03 Room Air 21 05/29/18 07:02 Room Air 21 05/29/18 04:00 97.8 84 18 159/89 (112) 92 05/29/18 03:32 80 18 100 Room Air 21 05/29/18 03:22 77 18 97 Room Air 21 05/29/18 01:04 171/107 05/29/18 00:00 98.5 83 18 170/96 (120) 94 05/28/18 23:30 77 18 99 Room Air 21 05/28/18 23:20 70 18 96 Room Air 21 Intake and Output 05/28/18 05/29/18 19:00 07:00 Intake Total 1115 ml Balance 1115 ml IV Total 165 ml Other 950 ml # Voids 3 Laboratory Tests 05/29/18 05:30: White Blood Count 9.6, Red Blood Count 5.66, Hemoglobin 15.8, Hematocrit 49.3, Mean Corpuscular Volume 87, Mean Corpuscular Hemoglobin 28.0, Mean Corpuscular Hemoglobin Concent 32.1, Red Cell Distribution Width 13.7, Platelet Count 154, Mean Platelet Volume 7.8, Neutrophils (%) (Auto) , Lymphocytes (%) (Auto) , Monocytes (%) (Auto) , Eosinophils (%) (Auto) , Basophils (%) (Auto) , Differential Total Cells Counted 100, Neutrophils % (Manual) 90H, Lymphocytes % (Manual) 8L, Monocytes % (Manual) 2, Eosinophils % (Manual) 0, Basophils % ( Manual) 0, Band Neutrophils 0, Platelet Estimate Adequate, Platelet Morphology Normal, Red Blood Cell Morphology Normal, Sodium Level 143, Potassium Level 4.4 , Chloride Level 106, Carbon Dioxide Level 30, Anion Gap 7, Blood Urea Nitrogen 18, Creatinine 0.9, Estimat Glomerular Filtration Rate , Glucose Level 148H, Calcium Level 8.6 05/29/18 18:34: Arterial Blood pH 7.438, Arterial Blood Partial Pressure CO2 37.2, Arterial Blood Partial Pressure O2 63.3L, Arterial Blood HCO3 24.6, Arterial Blood Oxygen Saturation 91.8L, Arterial Blood Base Excess 0.7, Christian Test Positive Height (Feet): 6 Weight (Pounds): 207 Neck: supple Cardiovascular: normal rate Respiratory/Chest: lungs clear Bola Astorga MD May 29, 2018 21:49
--- NOTE | 2018-05-29 22:07 | Initial Psychiatric Evaluation ---
Psychiatry Consultation Psychiatry Consultation Chief Complaint: Dyspnea/Respdistress History of Present Illness: 73 yo male with hx of mdd and anxiety. the pt has copd and pw depressed mood, anhedonia, worthlessness, hopelessness. the pt has suicidal thoughts. and min verbal. the pt is having insomnia. the pt is homeless and has financial diff. Allergies: Coded Allergies: No Known Allergies (Unverified , 01/29/13) Referring physician: Bola Astorga Reason for Consultation: H/O vocal cord tumor Medication History Scheduled Hydrocodone Bit/Acetaminophen 5-325* (Switchback 5-325*), 1 TAB ORAL Q6H No Known Medications* (NKM - No Known Medications*), 0 ., (Reported) Miscellaneous Medications Unable to Obtain Medications (Unable To Obtain Meds), (Reported) Patient History History Provided By: Patient, Medical Record, PMD Objective Data Height (Feet): 6 Weight (Pounds): 207 Appearance: disheveled, inappropriate Behavior Mannerisms: good eye contact Affect: blunted Mood: depressed Thought Process: goal-directed, coherent Suicidal Ideation: not present Assessment/Plan Problem List: (1) MDD (major depressive disorder) ICD Codes: F32.9 - Major depressive disorder, single episode, unspecified SNOMED: 810429177 (2) Acute insomnia ICD Codes: G47.00 - Insomnia, unspecified SNOMED: 421128960 Treatment Plan: lexapro 10mg po qam provided ro.st will transfer to [facility] after medically cleared Dhaval Gastelum MD May 29, 2018 22:07
[2018-05-30] VITALS: BP 163/104
[2018-05-30] MEDS: Albuterol/Ipratropium 3ml neb HHN SCH ×3 (03:13→10:57)
[2018-05-30 04:33] VITALS: BP 160/99
[2018-05-30 05:56] LABS: BASOPHILS % (AUTO) 0.8 % (0.0-2.0); HEMATOCRIT 48.8 % (42.0-52.0); HEMOGLOBIN 15.5 G/DL (14.2-18.0); LYMPHOCYTES % (AUTO) 13.2 % (20.0-45.0); MEAN CORPUSCULAR VOLUME 88 FL (80-99); MONOCYTES % (AUTO) 8.7 % (1.0-10.0); NEUTROPHILS % (AUTO) 77.2 % (45.0-75.0); PLATELET COUNT 153 K/UL (150-450); RED BLOOD COUNT 5.58 M/UL (4.70-6.10); RED CELL DISTRIBUTION WIDTH 13.7 % (11.6-14.8); WHITE BLOOD COUNT 9.7 K/UL (4.8-10.8)
[2018-05-30 06:08] LABS: ANION GAP 5 mmol/L (5-15); BLOOD UREA NITROGEN 23 mg/dL (7-18); CALCIUM 8.4 MG/DL (8.5-10.1); CARBON DIOXIDE 33 MMOL/L (21-32); CHLORIDE 107 MMOL/L (98-107); POTASSIUM 4.3 MMOL/L (3.5-5.1); SODIUM 145 MMOL/L (136-145)
--- NOTE | 2018-05-30 07:43 | NUR ---
HAND-OFF: Report given to SARATH Rosas.
--- NOTE | 2018-05-30 07:59 | NUR ---
NURSE NOTES: Patient alert and oriented,patient respirations are unlabored,patient ate breakfast.No complaints at ths time.Call light within reach.
[2018-05-30 08:13] VITALS: BP 150/90
[2018-05-30] MEDS: Levofloxacin 750mg tab ORAL SCH (08:37)
[2018-05-30] MEDS: Heparin 5000 units/ml inj SUBQ SCH ×2 (08:38→21:25)
--- NOTE | 2018-05-30 08:58 | Pulmonology Progress Note ---
Assessment/Plan Problems: (1) COPD exacerbation (2) UTI (urinary tract infection) (3) Benign neoplasm of vocal cord (4) Chronic hoarseness (5) HTN (hypertension) (6) Acute insomnia Assessment/Plan Optimize pulmonary hygiene/mobilize as tolerated PRN O2 RTC and PRN HHN's D/C SM, start Pred taper Levaquin per ID ENT eval noted F/U CT neck with and without contrast F/U non-contrast CT chest BP control: start Norvasc F/U TTE Ambien qHS The importance of abstinence from tobacco use was stressed to patient Continue nicotine patch F/U SW recs DVT Px: Hep SQ Subjective Allergies: Coded Allergies: No Known Allergies (Unverified , 01/29/13) Subjective Events reviewed AFVSS x elevated BP on RA - 2L Less cough less SOB no wheezing no FC no CP Objective Last 24 Hour Vital Signs Date Time Temp Pulse Resp B/P (MAP) Pulse Ox O2 Delivery O2 Flow Rate FiO2 05/30/18 08:37 80 150/90 05/30/18 08:13 98.4 80 22 150/90 (110) 93 05/30/18 06:55 Room Air 21 05/30/18 06:55 Room Air 21 05/30/18 04:33 97.1 91 24 160/99 (119) 91 05/30/18 03:25 90 18 97 Nasal Cannula 2.0 28 05/30/18 03:14 85 18 95 Nasal Cannula 2.0 28 05/30/18 00:00 97.9 74 21 163/104 (123) 93 05/29/18 23:23 72 18 98 Nasal Cannula 2.0 28 05/29/18 23:10 75 18 96 Nasal Cannula 2.0 28 05/29/18 21:00 Room Air 05/29/18 20:30 94 05/29/18 20:00 97.7 86 20 160/96 (117) 91 05/29/18 19:37 78 18 96 Room Air 21 05/29/18 19:27 80 18 93 Room Air 21 05/29/18 16:40 175/107 05/29/18 16:33 99.0 90 18 175/107 (129) 99 05/29/18 15:16 82 18 97 Room Air 21 05/29/18 15:01 82 18 92 Room Air 21 05/29/18 12:00 98.3 92 19 159/106 (123) 93 05/29/18 11:31 89 18 98 Room Air 21 05/29/18 11:15 86 18 93 Room Air 21 05/29/18 09:00 Room Air Intake and Output 05/29/18 05/30/18 19:00 07:00 Intake Total 1140 ml Balance 1140 ml Intake Oral 1140 ml # Voids 7 3 # Bowel Movements 1 General Appearance: WD/WN, no acute distress HEENT: normocephalic, atraumatic, anicteric, mucous membranes moist Respiratory/Chest: chest wall non-tender, lungs clear - but distant, normal breath sounds, no respiratory distress, no accessory muscle use Cardiovascular: normal peripheral pulses, normal rate, regular rhythm Abdomen: normal bowel sounds, soft, non tender, no organomegaly, non distended , no mass Extremities: no cyanosis, no clubbing, no edema Microbiology Date/Time Source Procedure Growth Status 05/27/18 13:25 Urine,Clean Catch Urine Culture - Final Escherichia Coli Complete Laboratory Tests 05/29/18 18:34: Arterial Blood pH 7.438, Arterial Blood Partial Pressure CO2 37.2, Arterial Blood Partial Pressure O2 63.3L, Arterial Blood HCO3 24.6, Arterial Blood Oxygen Saturation 91.8L, Arterial Blood Base Excess 0.7, Christian Test Positive 05/30/18 05:35: White Blood Count 9.7, Red Blood Count 5.58, Hemoglobin 15.5, Hematocrit 48.8, Mean Corpuscular Volume 88, Mean Corpuscular Hemoglobin 27.8, Mean Corpuscular Hemoglobin Concent 31.8L, Red Cell Distribution Width 13.7, Platelet Count 153, Mean Platelet Volume 8.0, Neutrophils (%) (Auto) 77.2H, Lymphocytes (%) (Auto) 13.2L, Monocytes (%) (Auto) 8.7, Eosinophils (%) (Auto) 0.0, Basophils (%) (Auto ) 0.8, Sodium Level 145, Potassium Level 4.3, Chloride Level 107, Carbon Dioxide Level 33H, Anion Gap 5, Blood Urea Nitrogen 23H, Creatinine 1.0, Estimat Glomerular Filtration Rate , Glucose Level 116H, Calcium Level 8.4L Current Medications Medications (Trade) Dose Ordered Sig/Demetrius Route PRN Reason Start Time Stop Time Status Last Admin Dose Admin Acetaminophen (Tylenol) 500 mg Q4H PRN ORAL Mild Pain/Temp > 100.5 05/27/18 17:45 06/26/18 17:44 Al Hydroxide/Mg Hydroxide (Mylanta) 30 ml Q4H PRN ORAL HEART BURN 05/29/18 21:30 06/28/18 21:29 05/30/18 00:45 Albuterol/ Ipratropium (Albuterol/ Ipratropium) 3 ml Q4H PRN HHN Shortness of Breath 05/27/18 17:45 06/01/18 17:44 Albuterol/ Ipratropium (Albuterol/ Ipratropium) 3 ml Q4HRT HHN 05/27/18 23:00 06/01/18 22:59 05/30/18 03:13 Amlodipine Besylate (Norvasc) 5 mg DAILY ORAL 05/29/18 09:00 06/28/18 08:59 05/30/18 08:37 Clonidine HCl (Catapres Tab) 0.1 mg Q6H PRN ORAL For High Blood Pressure 05/27/18 17:45 06/26/18 17:44 05/29/18 16:40 Famotidine (Pepcid) 20 mg DAILY ORAL 05/30/18 22:00 06/29/18 21:59 Heparin Sodium (Porcine) (Heparin 5000 units/ml) 5,000 units EVERY 12 HOURS SUBQ 05/27/18 21:00 06/26/18 20:59 05/30/18 08:38 Iopamidol (Isovue-300 100ml) 100 ml NOW PRN INJ Radiology Procedure 05/29/18 18:45 05/31/18 18:33 Levofloxacin (Levaquin) 750 mg DAILY ORAL 05/30/18 09:00 06/06/18 08:59 05/30/18 08:37 Methylprednisolone Sodium Succinate (Solu-MEDROL) 40 mg BID IVP 05/30/18 09:00 06/27/18 00:00 05/30/18 08:37 Nicotine (Nicoderm) 1 patch Q24H TDERMAL 05/27/18 13:30 06/26/18 13:29 05/29/18 13:01 Eddi Ruiz MD May 30, 2018 08:58
[2018-05-30] MEDS ORDERED: Zolpidem 5mg tab ORAL PRN (09:00)
[2018-05-30] MEDS ORDERED: Solu-MEDROL 40mg Inj IVP SCH (09:00)
[2018-05-30 12:00] VITALS: BP 155/106
--- NOTE | 2018-05-30 12:38 | Diagnostic Imaging Report ---
Indication: Neck pain, chronic hoarseness, history of benign neoplasm of vocal cord Technique: IV administration nonionic contrast. Spiral acquisitions obtained through the neck. Multiplanar reconstructions were generated. Total dose length product 812.08 mGycm. CTDIvol(s) 20.06 mGy. Dose reduction achieved using automated exposure control Comparison: No Findings: 2 polypoid protuberances are seen coming off the left true vocal cord. These are somewhat difficult to measure, as the medial margins are indeterminate as they are indistinguishable from the adjacent normal tissue. The more anterior lesion is somewhat complex in shape, measures approximately 6 mm AP by 8 mm craniocaudad approximately 6 mm transverse. The more posterior lesion measures approximately 7 mm AP by 6 mm transverse by 14 mm craniocaudad. There is some intervening irregularity of the superior aspect of the vocal cord, indicating this could be a single bilobed contiguous lesion. The nasopharynx and oropharynx are unremarkable. Two small gas protrusions into the mucosa of the hypopharynx noted posteriorly and left laterally. The trachea is unremarkable. The left lobe of the thyroid contains a 3 x 2.6 cm hypoattenuating slightly heterogeneous nodule. There is a very ill-defined approximately 16 mm nodule in the right thyroid lower pole. No other evidence of cervical mass or adenopathy. The bilateral parapharyngeal spaces are clear, symmetrical. The included sinuses are unremarkable. The patient is edentulous. A 3 mm calculus is seen within the lower pole of the superficial right parotid lobe. No evidence of salivary ductal dilatation demonstrated. There is some atherosclerotic change at the bilateral carotid bifurcations. The visualized intracranial structures are unremarkable. There are degenerative changes of the cervical spine resulting in multilevel neural foraminal stenosis and likely spinal canal stenosis. The included upper lungs are clear. Impression: 2 polypoid protuberances coming off the left true vocal cord, versus a bilobed single lesion connected by an isthmus, as detailed above. Appearance nonspecific, presumably related to stated clinical history of benign focal cord neoplasm. Differential considerations include focal cord nodule, vocal cord neoplasm, vocal cords cyst, vocal cord papilloma Possible tiny hypopharyngeal diverticula, versus artifact of redundant mucosa 3 x 2.6 cm left lobe thyroid nodule. 1.6 cm right lower pole thyroid nodule. Recommend further evaluation with sonography if these have not been worked up previously. Sialolith sinuses of the right parotid gland, nonobstructive. This is also evident on a prior maxillofacial CT scan of 01/29/2013 Degenerative spondylosis resulting in neural foramina and spinal canal stenosis The CT scanner at [facility] is accredited by the [employer] and the scans are performed using protocols designed to limit radiation exposure to as low as reasonably achievable to attain images of sufficient resolution adequate for diagnostic evaluation.
--- NOTE | 2018-05-30 12:47 | Diagnostic Imaging Report ---
Clinical Indication: COPD, shortness of breath Technique: Spiral acquisition obtained through the chest. No IV contrast utilized, per high resolution protocol. Axial 5 x 5 mm slices were reconstructed. Axial 1 mm thick slices were reconstructed using high resolution algorithm at 10 mm intervals. Multiplanar reconstructions generated. Total dose length product 887.59 mGycm. CTDIvol(s) 20.73 mGy. Dose reduction achieved using automated exposure control Comparison: none Findings: The lungs are diffusely hyperinflated. A single small bulla is seen in the left upper lobe at the level of the aortopulmonary window. Portions of both lower lobes are atelectatic, more so on the left than on the right. There may be some associated infiltrate as well. On the high-resolution images, no definite interstitial septal thickening, bronchiectasis, nodularity, honeycombing, or groundglass opacity demonstrated. No effusion, mass, nodule, or congestion demonstrated. A calcified granuloma is seen in the consolidated parenchyma on the left. The heart is borderline enlarged. No pericardial effusion demonstrated. The right main pulmonary artery is borderline dilated, measuring 3 cm in diameter. Left main pulmonary artery is ectatic. There is a small sliding-type hiatal hernia. No mediastinal or hilar mass or adenopathy. There are bilateral thyroid nodules. There are coronary artery calcifications. Bone window images demonstrate minimal degenerative spondylosis changes. The included upper abdomen demonstrates multiple gallstones. There is diffuse hypertrophy of the left adrenal which is diffusely low in attenuation indicating adenomatous hypertrophy. Impression: Hyperinflation, indicating COPD. Generalized interstitial process is not demonstrated, however. Evidence of old granulomatous disease Dilated right main pulmonary artery, indicative of pulmonary arterial hypertension Bilateral thyroid nodules-see separate neck CT report for details. Small sliding-type hiatal hernia Cholelithiasis Adenomatous hypertrophy left adrenal Borderline cardiomegaly The CT scanner at [facility] is accredited by the [employer] and the scans are performed using protocols designed to limit radiation exposure to as low as reasonably achievable to attain images of sufficient resolution adequate for diagnostic evaluation.
--- NOTE | 2018-05-30 13:05 | Infectious Diseases Prog Note ---
Assessment/Plan Assessment/Plan IMPRESSION: Pyuria and urinary tract infection. wit E. coli prostatic hypertrophy, chronic obstructive pulmonary disease with exacerbation, nicotine dependence, hypertension, and hoarseness. homeless. Vocal cord mass Thyroid nodule Pulmonary HPN RECOMMENDATION: continue Levaquin Subjective ROS Limited/Unobtainable: Yes Allergies: Coded Allergies: No Known Allergies (Unverified , 01/29/13) Objective Vital Signs Last 24 Hour Vital Signs Date Time Temp Pulse Resp B/P (MAP) Pulse Ox O2 Delivery O2 Flow Rate FiO2 05/30/18 10:57 Room Air 21 05/30/18 10:57 Room Air 21 05/30/18 09:00 Room Air 05/30/18 08:37 80 150/90 05/30/18 08:13 98.4 80 22 150/90 (110) 93 05/30/18 06:55 Room Air 21 05/30/18 06:55 Room Air 21 05/30/18 04:33 97.1 91 24 160/99 (119) 91 05/30/18 03:25 90 18 97 Nasal Cannula 2.0 28 05/30/18 03:14 85 18 95 Nasal Cannula 2.0 28 05/30/18 00:00 97.9 74 21 163/104 (123) 93 05/29/18 23:23 72 18 98 Nasal Cannula 2.0 28 05/29/18 23:10 75 18 96 Nasal Cannula 2.0 28 05/29/18 21:00 Room Air 05/29/18 20:30 94 05/29/18 20:00 97.7 86 20 160/96 (117) 91 05/29/18 19:37 78 18 96 Room Air 21 05/29/18 19:27 80 18 93 Room Air 21 05/29/18 16:40 175/107 05/29/18 16:33 99.0 90 18 175/107 (129) 99 05/29/18 15:16 82 18 97 Room Air 21 05/29/18 15:01 82 18 92 Room Air 21 Height (Feet): 6 Weight (Pounds): 207 General Appearance: no acute distress HEENT: mucous membranes moist Respiratory/Chest: decreased breath sounds Cardiovascular: normal rate Abdomen: soft, non tender Extremities: no edema Neurologic/Psychiatric: other - sleeping Microbiology Date/Time Source Procedure Growth Status 05/27/18 13:25 Urine,Clean Catch Urine Culture - Final Escherichia Coli Complete Laboratory Tests Test 05/29/18 18:34 05/30/18 05:35 Arterial Blood pH 7.438 (7.350-7.450) Arterial Blood Partial Pressure CO2 37.2 mmHg (35.0-45.0) Arterial Blood Partial Pressure O2 63.3 mmHg (75.0-100.0) L Arterial Blood HCO3 24.6 mmol/L (22.0-26.0) Arterial Blood Oxygen Saturation 91.8 % (95-100) L Arterial Blood Base Excess 0.7 (-2-2) Christian Test Positive White Blood Count 9.7 K/UL (4.8-10.8) Red Blood Count 5.58 M/UL (4.70-6.10) Hemoglobin 15.5 G/DL (14.2-18.0) Hematocrit 48.8 % (42.0-52.0) Mean Corpuscular Volume 88 FL (80-99) Mean Corpuscular Hemoglobin 27.8 PG (27.0-31.0) Mean Corpuscular Hemoglobin Concent 31.8 G/DL (32.0-36.0) L Red Cell Distribution Width 13.7 % (11.6-14.8) Platelet Count 153 K/UL (150-450) Mean Platelet Volume 8.0 FL (6.5-10.1) Neutrophils (%) (Auto) 77.2 % (45.0-75.0) H Lymphocytes (%) (Auto) 13.2 % (20.0-45.0) L Monocytes (%) (Auto) 8.7 % (1.0-10.0) Eosinophils (%) (Auto) 0.0 % (0.0-3.0) Basophils (%) (Auto) 0.8 % (0.0-2.0) Sodium Level 145 MMOL/L (136-145) Potassium Level 4.3 MMOL/L (3.5-5.1) Chloride Level 107 MMOL/L (98-107) Carbon Dioxide Level 33 MMOL/L (21-32) H Anion Gap 5 mmol/L (5-15) Blood Urea Nitrogen 23 mg/dL (7-18) H Creatinine 1.0 MG/DL (0.55-1.30) Estimat Glomerular Filtration Rate mL/min (>60) Glucose Level 116 MG/DL (74-106) H Calcium Level 8.4 MG/DL (8.5-10.1) L Current Medications Medications (Trade) Dose Ordered Sig/Demetrius Route PRN Reason Start Time Stop Time Status Last Admin Dose Admin Acetaminophen (Tylenol) 500 mg Q4H PRN ORAL Mild Pain/Temp > 100.5 05/27/18 17:45 06/26/18 17:44 Al Hydroxide/Mg Hydroxide (Mylanta) 30 ml Q4H PRN ORAL HEART BURN 05/29/18 21:30 06/28/18 21:29 05/30/18 00:45 Albuterol/ Ipratropium (Albuterol/ Ipratropium) 3 ml Q4H PRN HHN Shortness of Breath 05/27/18 17:45 06/01/18 17:44 Albuterol/ Ipratropium (Albuterol/ Ipratropium) 3 ml Q4HRT HHN 05/27/18 23:00 06/01/18 22:59 05/30/18 03:13 Amlodipine Besylate (Norvasc) 5 mg DAILY ORAL 05/31/18 09:00 06/30/18 08:59 Clonidine HCl (Catapres Tab) 0.1 mg Q6H PRN ORAL For High Blood Pressure 05/27/18 17:45 06/26/18 17:44 05/29/18 16:40 Famotidine (Pepcid) 20 mg DAILY ORAL 05/30/18 22:00 06/29/18 21:59 Heparin Sodium (Porcine) (Heparin 5000 units/ml) 5,000 units EVERY 12 HOURS SUBQ 05/27/18 21:00 06/26/18 20:59 05/30/18 08:38 Iopamidol (Isovue-300 100ml) 100 ml NOW PRN INJ Radiology Procedure 05/29/18 18:45 05/31/18 18:33 Levofloxacin (Levaquin) 750 mg DAILY ORAL 05/30/18 09:00 06/06/18 08:59 05/30/18 08:37 Nicotine (Nicoderm) 1 patch Q24H TDERMAL 05/27/18 13:30 06/26/18 13:29 05/29/18 13:01 Prednisone (predniSONE) 40 mg DAILY ORAL 05/31/18 09:00 06/30/18 08:59 Zolpidem Tartrate (Ambien) 5 mg HSPRN PRN ORAL Insomnia 05/30/18 09:00 06/06/18 08:59 Miguelito Gary MD May 30, 2018 13:05
--- NOTE | 2018-05-30 14:18 | General Progress Note ---
Assessment/Plan Problem List: (1) MDD (major depressive disorder) ICD Codes: F32.9 - Major depressive disorder, single episode, unspecified SNOMED: 524883094 (2) Acute insomnia ICD Codes: G47.00 - Insomnia, unspecified SNOMED: 693004243 Plan: lexapro 10mg po qam provided ro.st transfer to psych after medically cleared the pt has suicidal thoughts dw Dr. Astorga Subjective Neurologic/Psychiatric: Reports: anxiety, depressed, emotional problems Allergies: Coded Allergies: No Known Allergies (Unverified , 01/29/13) Objective Last 24 Hour Vital Signs Date Time Temp Pulse Resp B/P (MAP) Pulse Ox O2 Delivery O2 Flow Rate FiO2 05/30/18 10:57 Room Air 21 05/30/18 10:57 Room Air 21 05/30/18 09:00 Room Air 05/30/18 08:37 80 150/90 05/30/18 08:13 98.4 80 22 150/90 (110) 93 05/30/18 06:55 Room Air 21 05/30/18 06:55 Room Air 21 05/30/18 04:33 97.1 91 24 160/99 (119) 91 05/30/18 03:25 90 18 97 Nasal Cannula 2.0 28 05/30/18 03:14 85 18 95 Nasal Cannula 2.0 28 05/30/18 00:00 97.9 74 21 163/104 (123) 93 05/29/18 23:23 72 18 98 Nasal Cannula 2.0 28 05/29/18 23:10 75 18 96 Nasal Cannula 2.0 28 05/29/18 21:00 Room Air 05/29/18 20:30 94 05/29/18 20:00 97.7 86 20 160/96 (117) 91 05/29/18 19:37 78 18 96 Room Air 21 05/29/18 19:27 80 18 93 Room Air 21 05/29/18 16:40 175/107 05/29/18 16:33 99.0 90 18 175/107 (129) 99 05/29/18 15:16 82 18 97 Room Air 21 05/29/18 15:01 82 18 92 Room Air 21 Intake and Output 05/29/18 05/30/18 19:00 07:00 Intake Total 1140 ml Balance 1140 ml Intake Oral 1140 ml # Voids 7 3 # Bowel Movements 1 Laboratory Tests 05/29/18 18:34: Arterial Blood pH 7.438, Arterial Blood Partial Pressure CO2 37.2, Arterial Blood Partial Pressure O2 63.3L, Arterial Blood HCO3 24.6, Arterial Blood Oxygen Saturation 91.8L, Arterial Blood Base Excess 0.7, Christian Test Positive 05/30/18 05:35: White Blood Count 9.7, Red Blood Count 5.58, Hemoglobin 15.5, Hematocrit 48.8, Mean Corpuscular Volume 88, Mean Corpuscular Hemoglobin 27.8, Mean Corpuscular Hemoglobin Concent 31.8L, Red Cell Distribution Width 13.7, Platelet Count 153, Mean Platelet Volume 8.0, Neutrophils (%) (Auto) 77.2H, Lymphocytes (%) (Auto) 13.2L, Monocytes (%) (Auto) 8.7, Eosinophils (%) (Auto) 0.0, Basophils (%) (Auto ) 0.8, Sodium Level 145, Potassium Level 4.3, Chloride Level 107, Carbon Dioxide Level 33H, Anion Gap 5, Blood Urea Nitrogen 23H, Creatinine 1.0, Estimat Glomerular Filtration Rate , Glucose Level 116H, Calcium Level 8.4L Height (Feet): 6 Weight (Pounds): 207 General Appearance: WD/WN, no apparent distress, alert Neurologic: alert, oriented x 3, responsive, depressed affect Dhaval Gastelum MD May 30, 2018 14:18
--- NOTE | 2018-05-30 15:34 | NUR ---
Homeless Coordination DCP spoke with patient and discuss [facility] Referral Form for Bridge/Interim Housing Program. DCP assisted in completing application. Emailed completed application to [email or web address] and . Patient continues to require medical intervention. Will continue to monitor and assist as needed.
[2018-05-30 16:25] VITALS: BP 174/119
--- NOTE | 2018-05-30 18:17 | Cardiology Report ---
APPROVED REPORT EXAM: Two-dimensional and M-mode echocardiogram with Doppler and color Doppler. INDICATION S.O.B M-Mode DIMENSIONS IVSd1.4 (0.7-1.1cm)Left Atrium (MM)4.2 (1.6-4.0cm) LVDd6.6 (3.5-5.6cm)Aortic Root3.8 (2.0-3.7cm) PWd0.9 (0.7-1.1cm)Aortic Cusp Exc.1.5 (1.5-2.0cm) IVSs1.9 cm LVDs5.0 (2.5-4.0cm) PWs0.8 cm Normal left ventricular chamber size, systolic function and wall motion. Left ventricular ejection fraction estimated to be 55-60%. Mild left ventricular hypertrophy by 2-D. No evidence of pericardial effusion. Mild left atrial enlargement . Right cardiac chamber sizes are within normal limits. Aortic valve calcification with normal cusp excursion . Mildly thickened mitral valve leaflets with normal excursion. Mild mitral annulus and aortic root calcification. Pulmonic valve not well visualized. IVC at size 2.0 cm with physiologic collapse . false tendon in distal lv A color flow and spectral Doppler study was performed and revealed: Trace aortic insufficiency . Peak aortic valve gradient of 23 mm Hg and a mean of 10 mmHg. Aortic valve area 2.3 cm2 calculated by continuity equation, however this may be an over estimation of the aortic valve area . Mitral diastolic velocities suggest reduced left ventricular relaxation c/w mild LV diastolic dysfunction (Grade I ) Moderate mitral regurgitation. Mild tricuspid regurgitation. Tricuspid systolic velocities suggests peak right ventricular systolic pressure of 29mmHg.
--- NOTE | 2018-05-30 18:33 | Cardiology Report ---
APPROVED REPORT EKG Measurement Heart [id number] MD [id number] Sinus rhythm with occasional premature ventricular complexes vs v paced beat Possible Left atrial enlargement Right bundle branch block Left anterior fascicular block Bifascicular block Left ventricular hypertrophy with repolarization abnormality Abnormal ECG
--- NOTE | 2018-05-30 19:30 | NUR ---
HAND-OFF: Report given to zainab CLEMENS.
[2018-05-30 20:00] VITALS: BP 173/108
--- NOTE | 2018-05-30 20:30 | NUR ---
NURSE NOTES: Received patient from SARATH Rosas. Patient is in bed, awake watching TV, alert and oriented Addendum: 05/30/18 at 2251 by Brittny Salgado RN NURSE NOTES: Received patient from SARATH Rosas. Patient is in bed, awake, watching TV, alert and oriented X2. Patient has no s/s of distress or pain at the moment. Bed is at the lowest position, bed alarms active, side rails are up x2, call light is within reach. Will continue to monitor.
--- NOTE | 2018-05-30 21:47 | General Progress Note ---
Assessment/Plan Problem List: (1) HTN (hypertension) ICD Codes: I10 - Essential (primary) hypertension SNOMED: 02604808 Qualifiers: Qualified Codes: I10 - Essential (primary) hypertension (2) COPD exacerbation ICD Codes: J44.1 - Chronic obstructive pulmonary disease with (acute) exacerbation SNOMED: 559059978 (3) Benign neoplasm of vocal cord ICD Codes: D14.1 - Benign neoplasm of larynx SNOMED: 48030139 (4) Chronic hoarseness ICD Codes: R49.0 - Dysphonia SNOMED: 4503095393131 (5) UTI (urinary tract infection) ICD Codes: N39.0 - Urinary tract infection, site not specified SNOMED: 86536792 Qualifiers: Qualified Codes: N39.0 - Urinary tract infection, site not specified Status: progressing Assessment: afebrile nac htn copd exacerbation is improving no wheezing depression.consulted dr levy Subjective ROS Limited/Unobtainable: Yes Allergies: Coded Allergies: No Known Allergies (Unverified , 01/29/13) Objective Last 24 Hour Vital Signs Date Time Temp Pulse Resp B/P (MAP) Pulse Ox O2 Delivery O2 Flow Rate FiO2 05/30/18 16:31 174/119 05/30/18 16:25 98.1 83 20 174/119 (137) 94 05/30/18 12:00 96.3 81 20 155/106 (122) 93 05/30/18 10:57 Room Air 21 05/30/18 10:57 Room Air 21 05/30/18 09:00 Room Air 05/30/18 08:37 80 150/90 05/30/18 08:13 98.4 80 22 150/90 (110) 93 05/30/18 06:55 Room Air 21 05/30/18 06:55 Room Air 21 05/30/18 04:33 97.1 91 24 160/99 (119) 91 05/30/18 03:25 90 18 97 Nasal Cannula 2.0 28 05/30/18 03:14 85 18 95 Nasal Cannula 2.0 28 05/30/18 00:00 97.9 74 21 163/104 (123) 93 05/29/18 23:23 72 18 98 Nasal Cannula 2.0 28 05/29/18 23:10 75 18 96 Nasal Cannula 2.0 28 Intake and Output 05/29/18 05/30/18 18:59 06:59 Intake Total 1140 ml Balance 1140 ml Intake Oral 1140 ml # Voids 7 3 # Bowel Movements 1 Laboratory Tests 05/30/18 05:35: White Blood Count 9.7, Red Blood Count 5.58, Hemoglobin 15.5, Hematocrit 48.8, Mean Corpuscular Volume 88, Mean Corpuscular Hemoglobin 27.8, Mean Corpuscular Hemoglobin Concent 31.8L, Red Cell Distribution Width 13.7, Platelet Count 153, Mean Platelet Volume 8.0, Neutrophils (%) (Auto) 77.2H, Lymphocytes (%) (Auto) 13.2L, Monocytes (%) (Auto) 8.7, Eosinophils (%) (Auto) 0.0, Basophils (%) (Auto ) 0.8, Sodium Level 145, Potassium Level 4.3, Chloride Level 107, Carbon Dioxide Level 33H, Anion Gap 5, Blood Urea Nitrogen 23H, Creatinine 1.0, Estimat Glomerular Filtration Rate , Glucose Level 116H, Calcium Level 8.4L Height (Feet): 6 Weight (Pounds): 207 Neck: supple Cardiovascular: normal rate Respiratory/Chest: lungs clear Abdomen: soft Bola Astorga MD May 30, 2018 21:47
[2018-05-31 00:58] VITALS: BP 180/124
[2018-05-31 04:04] VITALS: BP 159/102
[2018-05-31 06:02] LABS: BASOPHILS % (AUTO) 1.3 % (0.0-2.0); EOSINOPHILS % (AUTO) 0.1 % (0.0-3.0); HEMATOCRIT 52.2 % (42.0-52.0); HEMOGLOBIN 16.4 G/DL (14.2-18.0); LYMPHOCYTES % (AUTO) 23.1 % (20.0-45.0); MEAN CORPUSCULAR VOLUME 88 FL (80-99); MONOCYTES % (AUTO) 9.5 % (1.0-10.0); PLATELET COUNT 141 K/UL (150-450); RED BLOOD COUNT 5.97 M/UL (4.70-6.10); RED CELL DISTRIBUTION WIDTH 13.5 % (11.6-14.8); WHITE BLOOD COUNT 7.6 K/UL (4.8-10.8)
[2018-05-31 06:25] LABS: ANION GAP 4 mmol/L (5-15); BLOOD UREA NITROGEN 23 mg/dL (7-18); CALCIUM 8.5 MG/DL (8.5-10.1); CARBON DIOXIDE 34 MMOL/L (21-32); CHLORIDE 106 MMOL/L (98-107); CREATININE 0.9 MG/DL (0.55-1.30); POTASSIUM 4.2 MMOL/L (3.5-5.1); SODIUM 144 MMOL/L (136-145)
--- NOTE | 2018-05-31 07:18 | NUR ---
HAND-OFF: Report given to SARATH Zhong.
--- NOTE | 2018-05-31 07:40 | NUR ---
NURSE NOTES: Received patient in bed, awake, alert and orientedx4. On room air noted with dry cough but no wheezing or congestion @ this time. Denies any pain or discomfort @ this time. IV intact, no s/s of infiltration. Bed is in low position and locked. Call light and personnel items within reach. Will continue plan of care.
[2018-05-31 08:00] VITALS: BP 165/112
[2018-05-31] MEDS: Heparin 5000 units/ml inj SUBQ SCH (09:00)
--- NOTE | 2018-05-31 09:30 | NUR ---
NURSE NOTES: Patient's blood pressure is 165/112 pulse is 61, asymptomatic @ this time. Dr. Astorga aware to recheck blood pressure in 2 hr, give norvasc 5mg x1 if SBP>150. Will continue to monitor.
--- NOTE | 2018-05-31 09:30 | NUR ---
NURSE NOTES: RN received discharge order from Dr. Astorga to d/c patient to [facility] with hospital med. d/c home med, d/c levaquin, start rocephine 1gm IV Q24HR x 7 days. prednisone 40mg daily x 3days,30mg daily x3 days, 20mg daily x 3days, 10mg daily x 3days, 5mg daily x 3 days then d/c upon d/c. All order read back and carried out.
[2018-05-31] MEDS: Levofloxacin 750mg tab ORAL SCH (10:03)
[2018-05-31 11:27] VITALS: BP 180/121
--- NOTE | 2018-05-31 11:27 | NUR ---
NURSE NOTES: Patient's blood pressure is elevated sBP>170. given clonidine 0.1mg. Patient denies chest pain, blurred vision or SOB.will continue to monitor.
--- NOTE | 2018-05-31 11:50 | Pulmonology Progress Note ---
Assessment/Plan Problems: (1) COPD exacerbation (2) UTI (urinary tract infection) (3) Benign neoplasm of vocal cord (4) Chronic hoarseness (5) HTN (hypertension) (6) Acute insomnia (7) Thyroid nodule (8) Lesion of vocal cord Assessment/Plan Optimize pulmonary hygiene/mobilize as tolerated PRN O2 RTC and PRN HHN's D/C SM, start Pred taper Levaquin per ID ENT eval noted F/U CT neck with and without contrast F/U non-contrast CT chest BP control: start Norvasc F/U TTE Ambien qHS The importance of abstinence from tobacco use was stressed to patient Continue nicotine patch F/U SW recs DVT Px: Hep SQ Subjective Allergies: Coded Allergies: No Known Allergies (Unverified , 01/29/13) Subjective Events reviewed AFVSS x elevated BP on RA - 2L Less cough less SOB no wheezing no FC no CP CT's reviewed Objective Last 24 Hour Vital Signs Date Time Temp Pulse Resp B/P (MAP) Pulse Ox O2 Delivery O2 Flow Rate FiO2 05/31/18 11:27 180/121 05/31/18 10:08 85 179/116 05/31/18 09:00 Room Air 05/31/18 08:24 95 Nasal Cannula 2.0 28 05/31/18 08:24 82 18 Nasal Cannula 2.0 28 05/31/18 08:24 Nasal Cannula 2.0 28 05/31/18 08:00 98.2 62 18 165/112 (129) 98 05/31/18 04:04 98.2 64 20 159/102 (121) 98 05/31/18 00:58 97.5 74 24 180/124 (142) 92 05/30/18 23:57 180/124 05/30/18 21:00 Room Air 05/30/18 20:00 Nasal Cannula 2.0 28 05/30/18 20:00 84 18 Nasal Cannula 2.0 28 05/30/18 20:00 98.0 72 20 173/108 (129) 97 05/30/18 20:00 96 Nasal Cannula 2.0 28 05/30/18 16:31 174/119 05/30/18 16:25 98.1 83 20 174/119 (137) 94 05/30/18 12:00 96.3 81 20 155/106 (122) 93 Intake and Output 05/30/18 05/31/18 19:00 07:00 Intake Total 1080 ml 700 ml Balance 1080 ml 700 ml Intake Oral 1080 ml 700 ml # Voids 4 5 # Bowel Movements 1 1 General Appearance: WD/WN, no acute distress HEENT: normocephalic, atraumatic, anicteric, mucous membranes moist Respiratory/Chest: chest wall non-tender, lungs clear, normal breath sounds, no respiratory distress, no accessory muscle use Cardiovascular: normal peripheral pulses, normal rate, regular rhythm Abdomen: normal bowel sounds, soft, non tender, no organomegaly, non distended , no mass Extremities: no cyanosis, no clubbing, no edema Laboratory Tests 05/31/18 05:12: White Blood Count 7.6, Red Blood Count 5.97, Hemoglobin 16.4, Hematocrit 52.2H, Mean Corpuscular Volume 88, Mean Corpuscular Hemoglobin 27.6, Mean Corpuscular Hemoglobin Concent 31.5L, Red Cell Distribution Width 13.5, Platelet Count 141L , Mean Platelet Volume 8.0, Neutrophils (%) (Auto) 66.0, Lymphocytes (%) (Auto) 23.1, Monocytes (%) (Auto) 9.5, Eosinophils (%) (Auto) 0.1, Basophils (%) (Auto ) 1.3, Sodium Level 144, Potassium Level 4.2, Chloride Level 106, Carbon Dioxide Level 34H, Anion Gap 4L, Blood Urea Nitrogen 23H, Creatinine 0.9, Estimat Glomerular Filtration Rate , Glucose Level 99, Calcium Level 8.5 Current Medications Medications (Trade) Dose Ordered Sig/Demetrius Route PRN Reason Start Time Stop Time Status Last Admin Dose Admin Acetaminophen (Tylenol) 500 mg Q4H PRN ORAL Mild Pain/Temp > 100.5 05/27/18 17:45 06/26/18 17:44 Al Hydroxide/Mg Hydroxide (Mylanta) 30 ml Q4H PRN ORAL HEART BURN 05/29/18 21:30 06/28/18 21:29 05/30/18 15:23 Albuterol/ Ipratropium (Albuterol/ Ipratropium) 3 ml Q4H PRN HHN Shortness of Breath 05/27/18 17:45 06/01/18 17:44 Amlodipine Besylate (Norvasc) 5 mg DAILY ORAL 05/31/18 09:00 06/30/18 08:59 05/31/18 10:08 Amlodipine Besylate (Norvasc) 5 mg ONCE ORAL 05/31/18 13:00 05/31/18 14:00 Clonidine HCl (Catapres Tab) 0.1 mg Q6H PRN ORAL For High Blood Pressure 05/27/18 17:45 06/26/18 17:44 05/31/18 11:27 Escitalopram Oxalate (Lexapro) 10 mg DAILY ORAL 05/30/18 14:15 06/29/18 14:14 05/31/18 10:04 Famotidine (Pepcid) 20 mg DAILY ORAL 05/30/18 22:00 06/29/18 21:59 05/31/18 10:09 Heparin Sodium (Porcine) (Heparin 5000 units/ml) 5,000 units EVERY 12 HOURS SUBQ 05/27/18 21:00 06/26/18 20:59 05/30/18 21:25 Iopamidol (Isovue-300 100ml) 100 ml NOW PRN INJ Radiology Procedure 05/29/18 18:45 05/31/18 18:33 Levofloxacin (Levaquin) 750 mg DAILY ORAL 05/30/18 09:00 06/06/18 08:59 05/31/18 10:03 Nicotine (Nicoderm) 1 patch Q24H TDERMAL 05/27/18 13:30 06/26/18 13:29 05/30/18 14:40 Prednisone (predniSONE) 40 mg DAILY ORAL 05/31/18 09:00 06/30/18 08:59 05/31/18 10:13 Quetiapine Fumarate (SEROquel) 25 mg BEDTIME ORAL 05/30/18 21:00 06/29/18 20:59 05/30/18 21:24 Zolpidem Tartrate (Ambien) 5 mg HSPRN PRN ORAL Insomnia 05/30/18 09:00 06/06/18 08:59 Eddi Ruiz MD May 31, 2018 11:49
--- NOTE | 2018-05-31 11:53 | Pulmonology Progress Note ---
Assessment/Plan Problems: (1) COPD exacerbation (2) UTI (urinary tract infection) (3) Benign neoplasm of vocal cord (4) Chronic hoarseness (5) HTN (hypertension) (6) Acute insomnia (7) Thyroid nodule (8) Lesion of vocal cord Assessment/Plan Optimize pulmonary hygiene/mobilize as tolerated PRN O2 RTC and PRN HHN's Pred taper Abx per ID Defer further w/u of VC lesion to ENT Thyroid nodule ordered BP control: inc Norvasc to 10, add Lisinopril 10, continue PRN Clonidine Ambien qHS The importance of abstinence from tobacco use was stressed to patient Continue nicotine patch F/U SW recs DVT Px: Hep SQ NEEDS OUTPATIENT FOLLOW UP Subjective Allergies: Coded Allergies: No Known Allergies (Unverified , 01/29/13) Subjective Events reviewed AFVSS x elevated BP on RA - 2L Less cough less SOB no wheezing no FC no CP CT's reviewed Objective Last 24 Hour Vital Signs Date Time Temp Pulse Resp B/P (MAP) Pulse Ox O2 Delivery O2 Flow Rate FiO2 05/31/18 11:27 180/121 05/31/18 10:08 85 179/116 05/31/18 09:00 Room Air 05/31/18 08:24 95 Nasal Cannula 2.0 28 05/31/18 08:24 82 18 Nasal Cannula 2.0 28 05/31/18 08:24 Nasal Cannula 2.0 28 05/31/18 08:00 98.2 62 18 165/112 (129) 98 05/31/18 04:04 98.2 64 20 159/102 (121) 98 05/31/18 00:58 97.5 74 24 180/124 (142) 92 05/30/18 23:57 180/124 05/30/18 21:00 Room Air 05/30/18 20:00 Nasal Cannula 2.0 28 05/30/18 20:00 84 18 Nasal Cannula 2.0 28 05/30/18 20:00 98.0 72 20 173/108 (129) 97 05/30/18 20:00 96 Nasal Cannula 2.0 28 05/30/18 16:31 174/119 05/30/18 16:25 98.1 83 20 174/119 (137) 94 05/30/18 12:00 96.3 81 20 155/106 (122) 93 Intake and Output 05/30/18 05/31/18 19:00 07:00 Intake Total 1080 ml 700 ml Balance 1080 ml 700 ml Intake Oral 1080 ml 700 ml # Voids 4 5 # Bowel Movements 1 1 General Appearance: WD/WN, no acute distress HEENT: normocephalic, atraumatic, anicteric, mucous membranes moist Respiratory/Chest: chest wall non-tender, lungs clear, normal breath sounds, no respiratory distress, no accessory muscle use Cardiovascular: normal peripheral pulses, normal rate, regular rhythm Abdomen: normal bowel sounds, soft, non tender, no organomegaly, non distended , no mass Extremities: no cyanosis, no clubbing, no edema Laboratory Tests 05/31/18 05:12: White Blood Count 7.6, Red Blood Count 5.97, Hemoglobin 16.4, Hematocrit 52.2H, Mean Corpuscular Volume 88, Mean Corpuscular Hemoglobin 27.6, Mean Corpuscular Hemoglobin Concent 31.5L, Red Cell Distribution Width 13.5, Platelet Count 141L , Mean Platelet Volume 8.0, Neutrophils (%) (Auto) 66.0, Lymphocytes (%) (Auto) 23.1, Monocytes (%) (Auto) 9.5, Eosinophils (%) (Auto) 0.1, Basophils (%) (Auto ) 1.3, Sodium Level 144, Potassium Level 4.2, Chloride Level 106, Carbon Dioxide Level 34H, Anion Gap 4L, Blood Urea Nitrogen 23H, Creatinine 0.9, Estimat Glomerular Filtration Rate , Glucose Level 99, Calcium Level 8.5 Current Medications Medications (Trade) Dose Ordered Sig/Demetrius Route PRN Reason Start Time Stop Time Status Last Admin Dose Admin Acetaminophen (Tylenol) 500 mg Q4H PRN ORAL Mild Pain/Temp > 100.5 05/27/18 17:45 06/26/18 17:44 Al Hydroxide/Mg Hydroxide (Mylanta) 30 ml Q4H PRN ORAL HEART BURN 05/29/18 21:30 06/28/18 21:29 05/30/18 15:23 Albuterol/ Ipratropium (Albuterol/ Ipratropium) 3 ml Q4H PRN HHN Shortness of Breath 05/27/18 17:45 06/01/18 17:44 Amlodipine Besylate (Norvasc) 5 mg DAILY ORAL 05/31/18 09:00 06/30/18 08:59 05/31/18 10:08 Amlodipine Besylate (Norvasc) 5 mg ONCE ORAL 05/31/18 13:00 05/31/18 14:00 Clonidine HCl (Catapres Tab) 0.1 mg Q6H PRN ORAL For High Blood Pressure 05/27/18 17:45 06/26/18 17:44 05/31/18 11:27 Escitalopram Oxalate (Lexapro) 10 mg DAILY ORAL 05/30/18 14:15 06/29/18 14:14 05/31/18 10:04 Famotidine (Pepcid) 20 mg DAILY ORAL 05/30/18 22:00 06/29/18 21:59 05/31/18 10:09 Heparin Sodium (Porcine) (Heparin 5000 units/ml) 5,000 units EVERY 12 HOURS SUBQ 05/27/18 21:00 06/26/18 20:59 05/30/18 21:25 Iopamidol (Isovue-300 100ml) 100 ml NOW PRN INJ Radiology Procedure 05/29/18 18:45 05/31/18 18:33 Levofloxacin (Levaquin) 750 mg DAILY ORAL 05/30/18 09:00 06/06/18 08:59 05/31/18 10:03 Nicotine (Nicoderm) 1 patch Q24H TDERMAL 05/27/18 13:30 06/26/18 13:29 05/30/18 14:40 Prednisone (predniSONE) 40 mg DAILY ORAL 05/31/18 09:00 06/30/18 08:59 05/31/18 10:13 Quetiapine Fumarate (SEROquel) 25 mg BEDTIME ORAL 05/30/18 21:00 06/29/18 20:59 05/30/18 21:24 Zolpidem Tartrate (Ambien) 5 mg HSPRN PRN ORAL Insomnia 05/30/18 09:00 06/06/18 08:59 Eddi Ruiz MD May 31, 2018 11:53
--- NOTE | 2018-05-31 12:01 | NUR ---
DISCHARGE PLANNED PT. WILL DC TO [facility] ROOM [address] T FOR NURSE TO NURSE REPORT [facility] WILL PARARESCUE MANAGER AT 1315 Addendum: 05/31/18 at 1203 by Astrid Mejia LVN SKILLED
--- NOTE | 2018-05-31 12:05 | Infectious Diseases Prog Note ---
Assessment/Plan Assessment/Plan IMPRESSION: Pyuria and urinary tract infection. wit E. coli prostatic hypertrophy, chronic obstructive pulmonary disease with exacerbation, nicotine dependence, hypertension, and hoarseness. homeless. Vocal cord mass Thyroid nodule Pulmonary HPN RECOMMENDATION: continue Levaquin Subjective ROS Limited/Unobtainable: No Constitutional: Reports: no symptoms Respiratory: Reports: dry cough Gastrointestinal/Abdominal: Reports: no symptoms Genitourinary: Reports: no symptoms Allergies: Coded Allergies: No Known Allergies (Unverified , 01/29/13) Objective Vital Signs Last 24 Hour Vital Signs Date Time Temp Pulse Resp B/P (MAP) Pulse Ox O2 Delivery O2 Flow Rate FiO2 05/31/18 11:27 180/121 05/31/18 10:08 85 179/116 05/31/18 09:00 Room Air 05/31/18 08:24 95 Nasal Cannula 2.0 28 05/31/18 08:24 82 18 Nasal Cannula 2.0 28 05/31/18 08:24 Nasal Cannula 2.0 28 05/31/18 08:00 98.2 62 18 165/112 (129) 98 05/31/18 04:04 98.2 64 20 159/102 (121) 98 05/31/18 00:58 97.5 74 24 180/124 (142) 92 05/30/18 23:57 180/124 05/30/18 21:00 Room Air 05/30/18 20:00 Nasal Cannula 2.0 28 05/30/18 20:00 84 18 Nasal Cannula 2.0 28 05/30/18 20:00 98.0 72 20 173/108 (129) 97 05/30/18 20:00 96 Nasal Cannula 2.0 28 05/30/18 16:31 174/119 05/30/18 16:25 98.1 83 20 174/119 (137) 94 Height (Feet): 6 Weight (Pounds): 204 General Appearance: no acute distress HEENT: mucous membranes moist Respiratory/Chest: rhonchi - bilaterally Cardiovascular: normal rate Abdomen: soft, non tender Extremities: no edema Neurologic/Psychiatric: alert, oriented x 3, responsive Laboratory Tests Test 05/31/18 05:12 White Blood Count 7.6 K/UL (4.8-10.8) Red Blood Count 5.97 M/UL (4.70-6.10) Hemoglobin 16.4 G/DL (14.2-18.0) Hematocrit 52.2 % (42.0-52.0) H Mean Corpuscular Volume 88 FL (80-99) Mean Corpuscular Hemoglobin 27.6 PG (27.0-31.0) Mean Corpuscular Hemoglobin Concent 31.5 G/DL (32.0-36.0) L Red Cell Distribution Width 13.5 % (11.6-14.8) Platelet Count 141 K/UL (150-450) L Mean Platelet Volume 8.0 FL (6.5-10.1) Neutrophils (%) (Auto) 66.0 % (45.0-75.0) Lymphocytes (%) (Auto) 23.1 % (20.0-45.0) Monocytes (%) (Auto) 9.5 % (1.0-10.0) Eosinophils (%) (Auto) 0.1 % (0.0-3.0) Basophils (%) (Auto) 1.3 % (0.0-2.0) Sodium Level 144 MMOL/L (136-145) Potassium Level 4.2 MMOL/L (3.5-5.1) Chloride Level 106 MMOL/L (98-107) Carbon Dioxide Level 34 MMOL/L (21-32) H Anion Gap 4 mmol/L (5-15) L Blood Urea Nitrogen 23 mg/dL (7-18) H Creatinine 0.9 MG/DL (0.55-1.30) Estimat Glomerular Filtration Rate mL/min (>60) Glucose Level 99 MG/DL (74-106) Calcium Level 8.5 MG/DL (8.5-10.1) Current Medications Medications (Trade) Dose Ordered Sig/Demetrius Route PRN Reason Start Time Stop Time Status Last Admin Dose Admin Acetaminophen (Tylenol) 500 mg Q4H PRN ORAL Mild Pain/Temp > 100.5 05/27/18 17:45 06/26/18 17:44 Al Hydroxide/Mg Hydroxide (Mylanta) 30 ml Q4H PRN ORAL HEART BURN 05/29/18 21:30 06/28/18 21:29 05/30/18 15:23 Albuterol/ Ipratropium (Albuterol/ Ipratropium) 3 ml Q4H PRN HHN Shortness of Breath 05/27/18 17:45 06/01/18 17:44 Amlodipine Besylate (Norvasc) 5 mg ONCE ORAL 05/31/18 13:00 05/31/18 14:00 Amlodipine Besylate (Norvasc) 10 mg DAILY ORAL 06/01/18 09:00 06/30/18 08:59 UNV Clonidine HCl (Catapres Tab) 0.1 mg Q6H PRN ORAL For High Blood Pressure 05/27/18 17:45 06/26/18 17:44 05/31/18 11:27 Escitalopram Oxalate (Lexapro) 10 mg DAILY ORAL 05/30/18 14:15 06/29/18 14:14 05/31/18 10:04 Famotidine (Pepcid) 20 mg DAILY ORAL 05/30/18 22:00 06/29/18 21:59 05/31/18 10:09 Heparin Sodium (Porcine) (Heparin 5000 units/ml) 5,000 units EVERY 12 HOURS SUBQ 05/27/18 21:00 06/26/18 20:59 05/30/18 21:25 Iopamidol (Isovue-300 100ml) 100 ml NOW PRN INJ Radiology Procedure 05/29/18 18:45 05/31/18 18:33 Levofloxacin (Levaquin) 750 mg DAILY ORAL 05/30/18 09:00 06/06/18 08:59 05/31/18 10:03 Lisinopril (Zestril) 10 mg DAILY ORAL 06/01/18 09:00 07/01/18 08:59 UNV Nicotine (Nicoderm) 1 patch Q24H TDERMAL 05/27/18 13:30 06/26/18 13:29 05/30/18 14:40 Prednisone (predniSONE) 40 mg DAILY ORAL 05/31/18 09:00 06/30/18 08:59 05/31/18 10:13 Quetiapine Fumarate (SEROquel) 25 mg BEDTIME ORAL 05/30/18 21:00 06/29/18 20:59 05/30/18 21:24 Zolpidem Tartrate (Ambien) 5 mg HSPRN PRN ORAL Insomnia 05/30/18 09:00 06/06/18 08:59 Miguelito Gary MD May 31, 2018 12:05
--- NOTE | 2018-05-31 12:30 | NUR ---
NURSE NOTES: Patient refused US thyroid. RN explained the risks and benefit but patient refused x3 stating " I am leaving. I need to go so I do not need it."
--- NOTE | 2018-05-31 12:45 | NUR ---
NURSE NOTES: Patient denied chest pain, SOB or pain prior to leaving the hospital.
--- NOTE | 2018-05-31 12:45 | NUR ---
NURSE NOTES: Patient has been staying calm, no issues during shift. Patient was seen by doctors and people to assist him for medical application and stuff and patient was pending discharge to SNF. RN was waiting for CM for transportation. All of a sudden, patient called RN stating " I am leaving, right now, take out the IV. People are trying to send me to [facility]." RN re explained to the patient that he is going to [facility]. Patient insisting to leave. RN contacted Dr. Astorga and Oriana. Dr. Astorga came to the unit right away and spoke to the patient about his placement and his medical conditions such as elevated blood pressure and thyroid issue.Patient refused to stay here stating " I have place to go, do not worry and my blood pressure will go down. I am upset now that's why blood pressure is high. Let me go. I really appreciate for everything but I have to go right now." Patient verbalized that he has no suicidal thoughts. Patient knows when to seek medical attention. Patient totally understood what AMA is and all belongings accounted for but patient refused to sign homeless discharge paper. Dr. Astorga and Dr. 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
--- NOTE | 2018-05-31 17:06 | Psych Consult Progress Note ---
Psychiatry Progress Note Psychiatry Progress Note Problems: (1) MDD (major depressive disorder) (2) Acute insomnia Allergies: Coded Allergies: No Known Allergies (Unverified , 01/29/13) Subjective the pt was hard of hearing. Upon my entrance to his room, he stated that he was not doing well and wants to leave to get his car. He pointed to the parking structure and stated "it's here. I don't want to lose it." This MD told him that he needed to wait for the discharge order by primary. I told him that he may not leave on his own, he either goes to [facility] or sniff. The pt denied suicidal thoughts and stated that he was fine. Objective Data Height (Feet): 6 Weight (Pounds): 204 General Appearance: WD/WN, no apparent distress, alert Appearance: disheveled Behavior Mannerisms: good eye contact Mental Status Exam - Mood: depressed, irritable, angry Speech: clear Mental Status Exam - Thought P: coherent Mental Status Exam - Suicidal: not present Assessment/Plan Problem List: (1) MDD (major depressive disorder) ICD Codes: F32.9 - Major depressive disorder, single episode, unspecified SNOMED: 566027115 (2) Acute insomnia ICD Codes: G47.00 - Insomnia, unspecified SNOMED: 216445082 Status: stable Plan: the pt is not at imminent ts/dto the pt is not meeting the criteria for 5150 Dhaval Gastelum MD May 31, 2018 17:06
--- NOTE | 2018-05-31 23:31 | Diagnostic Imaging Report ---
APPROVED REPORT CPT Code: 37440 Present Symptoms Comments: Screening BILATERAL: Imaging reveals a patent deep venous system bilaterally. There is no evidence of thrombus within the common femoral, superficial femoral, popliteal or tibial segments. The greater saphenous veins are within normal limits. Doppler indicates normal spontaneous flow within these segments.
[2018-06-01] MEDS ORDERED: Lisinopril 10mg tab ORAL SCH (09:00)
--- NOTE | 2018-06-01 12:10 | Discharge Summary ---
Discharge Summary Discharge Summary _ DATE OF ADMISSION: 05/27/2018 DATE OF DISCHARGE: 05/31/2018 CONSULTANTS: Dr. Dhaval Gary BRIEF HOSPITAL COURSE: Patient is a 73-year-old male, who presented to ED due to increased shortness of breath and dyspnea on exertion. Symptoms had been progressing over several weeks. He is a smoker. He denied chest pain. Denied fever. Denied cough. Denied edema or calf pain. Denied nausea or vomiting. He gets weak when he gets short of breath. He had some dribbling when he urinates. There was no dysuria. He had some loose stools but has been moving his bowels without difficulty. He feels depressed as he is living in his car. He has history of vocal cord tumor. He has hoarseness, but denies any difficulty swallowing. He has history of hypertension and had not been taking medications. He has history of hepatitis C, he stated he was treated at [facility], and stated he has been cured. On evaluation at the ED, blood pressure was elevated 199/115. Blood work did not show any leukocytosis, hemoglobin and hematocrit were stable. Electrolytes were normal. Urinalysis showed 2+ leukocyte esterase, positive nitrite, 2-4 RBC , 40-60 WBC. Chest x-ray showed increased interstitial markings in bilateral lung bases. He was given nebulizer treatment. He was given Solu-Medrol. Started on IV antibiotics. He was given carvedilol. Blood pressure slightly improved. He continued to have dyspnea on exertion. He was admitted for COPD exacerbation and UTI. Blood pressure and O2 sat were monitored. He was continued on IV Solu-Medrol. He was given O2 support. He was placed on nicotine patch. Stressed importance of abstinence from tobacco use. ID was consulted. He was given doxycycline and ceftriaxone. ENT was consulted. 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 Fiberoptic laryngoscopy showed left cord would move to the midline, although, it has exophytic mass. According to patient, he had biopsy done before and was told it was not cancerous. Records were not available for review. He continues to smoke. He was recommended CT of the neck with and without contrast and possibly additional biopsy, which can be done as outpatient. Urine culture showed growth of E. coli. Doxycycline and ceftriaxone was discontinued. He was started on Levaquin. Steroids were tapered. Venous duplex was negative for acute DVT. Echocardiogram showed EF 55-60% with mild left ventricular hypertrophy. Patient was depressed. He had insomnia. He was given Lexapro. He was planned for transfer to a psychiatric facility when medically cleared. Neck CT showed 2 polypoid protuberances coming off the left true vocal cord bilobed single lesion connected by an isthmus. 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 There was bilateral thyroid lobe nodule noted. Chest CT showed hyperinflated lung with evidence of old granulomatous disease and dilated right main coronary artery, indicative of pulmonary arterial hypertension. Social service was consulted. Full treatment was not carried out as patient left against medical advise. Patient did not meet criteria for 5150. FINAL DIAGNOSES: Acute COPD exacerbation Pyuria and UTI with E. coli Prostatic hypertrophy Routine dependence Hypertension Benign neoplasm of vocal cord Neck hoarseness Hypertension Bilateral thyroid nodule Pulmonary hypertension Major depressive disorder Acute insomnia Homelessness Status post fiberoptic laryngoscopy 05/29/2018 DISPOSITION: Patient left against medical advise. I have been assigned to complete a discharge summary on this account, I was not involved with the patient's management. Kira Choe NP Jun 01, 2018 12:10
== END 2018-05-31 12:40 | disposition left against medical advice (07) | DRG 191 ==
LOC: EMR 13:08 → EDBEDREQ 14:46 → 4E 15:03
PROC: 0CJS8ZZ Inspection of Larynx, Via Natural or Artificial Opening Endoscopic (ICD-10-PCS; principal; 2018-05-29)
DX: J44.1 Chronic obstructive pulmonary disease with (acute) exacerbation (principal); N39.0 Urinary tract infection, site not specified; I10 Essential (primary) hypertension; Z59.0 Homelessness; F17.200 Nicotine dependence, unspecified, uncomplicated; B96.20 Unspecified Escherichia coli [E. coli] as the cause of diseases classified elsewhere; N40.0 Benign prostatic hyperplasia without lower urinary tract symptoms; D14.1 Benign neoplasm of larynx; E04.1 Nontoxic single thyroid nodule; F32.9 Major depressive disorder, single episode, unspecified; G47.00 Insomnia, unspecified; Z86.19 Personal history of other infectious and parasitic diseases; R49.0 Dysphonia; I27.20 Pulmonary hypertension, unspecified
CPT/HCPCS: 36415; 36600; 70491; 71045; 71250; 80048; 80053; 80307; 81003; 82248; 82550; 82803; 83605; 83735; 83880; 84484; 85007; 85025; 85610; 85730; 87086; 87181; 93005; 93306; 93970; 94640; 94664; 94760; 96365; 96375; 99285; J3490; J7620

== ENCOUNTER 2018-05-31 19:17 | Inpatient (IN) | payer MEDICARE ==
[~2018-05-31] VITALS: Ht 182.9 cm; Wt 78.0 kg
[~2018-05-31 19:17] MED LIST changes: +UNOBMED
[2018-05-31 19:40] VITALS: BP 140/84
[2018-05-31] MEDS ORDERED: Levalbuterol Inh UD 1.25mg/0.5ml HHN ONE (19:45)
[2018-05-31] MEDS ORDERED: Ipratropium 0.02% Inh Soln 2.5ml UD HHN ONE (19:45)
--- NOTE | 2018-05-31 19:59 | Emergency Room Report ---
History of Present Illness General Chief Complaint: Dyspnea/Respdistress Source: Patient Present Illness HPI Patient present with complaints of shortness of breath Patient reports that he left AGAINST MEDICAL ADVICE this afternoon at 12:00 However since then has continued to feel more short of breath Denies any chest pain Denies any back or flank pain patient did also smoke after he left the hospital Allergies: Coded Allergies: No Known Allergies (Unverified , 01/29/13) Patient History Past Medical History: see triage record Pertinent Family History: none Reviewed Nursing Documentation: PMH: Agreed; PSxH: Agreed Nursing Documentation-PMH Hx Cardiac Problems: Yes Hx Hypertension: Yes Hx Asthma: Yes Hx COPD: Yes Hx Cancer: No - Vocal cord tumor (Horsness) Hx Gastrointestinal Problems: No Hx Neurological Problems: No - Facial trauma(Facial laceration) Review of Systems All Other Systems: negative except mentioned in HPI Physical Exam Vital Signs Date Time Temp Pulse Resp B/P (MAP) Pulse Ox O2 Delivery O2 Flow Rate FiO2 05/31/18 19:23 98.1 99 24 140/84 93 Room Air Sp02 EP Interpretation: reviewed, normal General Appearance: mild distress - Appear short of breath Head: normocephalic, atraumatic Eyes: bilateral eye PERRL, bilateral eye EOMI ENT: dry mucus membranes Neck: supple Respiratory: lungs clear Cardiovascular #1: regular rate, rhythm, no edema Gastrointestinal: non tender, soft Genitourinary: no CVA tenderness Musculoskeletal: normal inspection Neurologic: alert, oriented x3 Skin: normal color, no rash Lymphatic: no adenopathy Medical Decision Making Diagnostic Impression: Primary Impression: Dyspnea Additional Impression: Respiratory distress ER Course Patient is a fairly complex patient with multiple differential to consideration including but not limited to cardiac cardiopulmonary and vascular emergencies Patient appears short of breath and required acute intervention Minimal blood work is repeated as the patient has significant workup in the computer from recent hospitalization And requires further inpatient care Labs Test 05/31/18 19:40 06/01/18 06:25 06/01/18 08:30 White Blood Count 7.2 K/UL (4.8-10.8) 7.6 K/UL (4.8-10.8) Red Blood Count 6.61 M/UL (4.70-6.10) 6.30 M/UL (4.70-6.10) Hemoglobin 18.1 G/DL (14.2-18.0) 17.4 G/DL (14.2-18.0) Hematocrit 56.1 % (42.0-52.0) 54.1 % (42.0-52.0) Mean Corpuscular Volume 85 FL (80-99) 86 FL (80-99) Mean Corpuscular Hemoglobin 27.3 PG (27.0-31.0) 27.6 PG (27.0-31.0) Mean Corpuscular Hemoglobin Concent 32.2 G/DL (32.0-36.0) 32.1 G/DL (32.0-36.0) Red Cell Distribution Width 13.5 % (11.6-14.8) 13.2 % (11.6-14.8) Platelet Count 110 K/UL (150-450) 144 K/UL (150-450) Mean Platelet Volume 7.0 FL (6.5-10.1) 8.4 FL (6.5-10.1) Neutrophils (%) (Auto) 84.9 % (45.0-75.0) 71.0 % (45.0-75.0) Lymphocytes (%) (Auto) 9.8 % (20.0-45.0) 18.2 % (20.0-45.0) Monocytes (%) (Auto) 4.3 % (1.0-10.0) 8.9 % (1.0-10.0) Eosinophils (%) (Auto) 0.0 % (0.0-3.0) 0.7 % (0.0-3.0) Basophils (%) (Auto) 1.0 % (0.0-2.0) 1.2 % (0.0-2.0) Sodium Level 139 MMOL/L (136-145) 139 MMOL/L (136-145) Potassium Level 4.5 MMOL/L (3.5-5.1) 3.8 MMOL/L (3.5-5.1) Chloride Level 100 MMOL/L (98-107) 103 MMOL/L (98-107) Carbon Dioxide Level 30 MMOL/L (21-32) 30 MMOL/L (21-32) Anion Gap 9 mmol/L (5-15) 6 mmol/L (5-15) Blood Urea Nitrogen 24 mg/dL (7-18) 19 mg/dL (7-18) Creatinine 0.9 MG/DL (0.55-1.30) 0.7 MG/DL (0.55-1.30) Estimat Glomerular Filtration Rate mL/min (>60) mL/min (>60) Glucose Level 122 MG/DL (74-106) 90 MG/DL (74-106) Calcium Level 8.6 MG/DL (8.5-10.1) 8.2 MG/DL (8.5-10.1) Total Bilirubin 1.3 MG/DL (0.2-1.0) Direct Bilirubin 0.2 MG/DL (0.0-0.3) Aspartate Amino Transf (AST/SGOT) 28 U/L (15-37) Alanine Aminotransferase (ALT/SGPT) 75 U/L (12-78) Alkaline Phosphatase 66 U/L (46-116) Total Protein 6.6 G/DL (6.4-8.2) Albumin 3.2 G/DL (3.4-5.0) Globulin 3.4 g/dL Albumin/Globulin Ratio 0.9 (1.0-2.7) EKG Diagnostic Results Rate: normal Rhythm: NSR ST Segments: no acute changes Rhythm Strip Diag. Results EP Interpretation: yes Rate: 78 Rhythm: NSR, no PVC's, no ectopy Last Vital Signs Date Time Temp Pulse Resp B/P (MAP) Pulse Ox O2 Delivery O2 Flow Rate FiO2 05/31/18 19:23 98.1 99 24 140/84 93 Room Air Status: improved Disposition: ADMITTED INPATIENT Condition: Serious Bola Walker DO May 31, 2018 19:59
[2018-05-31 20:16] LABS: ANION GAP 9 mmol/L (5-15); BLOOD UREA NITROGEN 24 mg/dL (7-18); CALCIUM 8.6 MG/DL (8.5-10.1); CARBON DIOXIDE 30 MMOL/L (21-32); CHLORIDE 100 MMOL/L (98-107); CREATININE 0.9 MG/DL (0.55-1.30); POTASSIUM 4.5 MMOL/L (3.5-5.1); SODIUM 139 MMOL/L (136-145)
[2018-05-31 20:22] LABS: HEMATOCRIT 56.1 % (42.0-52.0); LYMPHOCYTES % (AUTO) 9.8 % (20.0-45.0); MEAN CORPUSCULAR VOLUME 85 FL (80-99); MONOCYTES % (AUTO) 4.3 % (1.0-10.0); NEUTROPHILS % (AUTO) 84.9 % (45.0-75.0); PLATELET COUNT 110 K/UL (150-450); RED BLOOD COUNT 6.61 M/UL (4.70-6.10); RED CELL DISTRIBUTION WIDTH 13.5 % (11.6-14.8); WHITE BLOOD COUNT 7.2 K/UL (4.8-10.8)
[2018-05-31 20:24] LABS: HEMOGLOBIN 18.1 G/DL (14.2-18.0)
[2018-05-31 22:00] VITALS: BP 155/95
[2018-06-01] VITALS: BP 143/90
[2018-06-01] MEDS ORDERED: Zolpidem 5mg tab ORAL PRN (01:15)
[2018-06-01] MEDS ORDERED: Mylanta II UD 30ml ORAL PRN (01:15)
[2018-06-01] MEDS ORDERED: Albuterol/Ipratropium 3ml neb HHN PRN (01:15)
[2018-06-01] MEDS ORDERED: Acetaminophen 500mg (ES) tab ORAL PRN (01:15)
[2018-06-01 04:00] VITALS: BP 158/99
[2018-06-01 07:37] LABS: ALANINE AMINOTRANSFERASE 75 U/L (12-78); ALBUMIN 3.2 G/DL (3.4-5.0); ALBUMIN/GLOBULIN RATIO 0.9 (1.0-2.7); ALKALINE PHOSPHATASE 66 U/L (46-116); ANION GAP 6 mmol/L (5-15); ASPARTATE AMINO TRANSFERASE 28 U/L (15-37); BILIRUBIN,TOTAL 1.3 MG/DL (0.2-1.0); BLOOD UREA NITROGEN 19 mg/dL (7-18); CALCIUM 8.2 MG/DL (8.5-10.1); CARBON DIOXIDE 30 MMOL/L (21-32); CHLORIDE 103 MMOL/L (98-107); CREATININE 0.7 MG/DL (0.55-1.30); POTASSIUM 3.8 MMOL/L (3.5-5.1); SODIUM 139 MMOL/L (136-145)
[2018-06-01 07:39] LABS: BILIRUBIN,DIRECT 0.2 MG/DL (0.0-0.3)
[2018-06-01 08:34] VITALS: BP 169/85
[2018-06-01] MEDS ORDERED: Lisinopril 10mg tab ORAL SCH (09:00)
[2018-06-01] MEDS ORDERED: Heparin 5000 units/ml inj SUBQ SCH ×2 (09:00)
[2018-06-01 09:03] LABS: BASOPHILS % (AUTO) 1.2 % (0.0-2.0); EOSINOPHILS % (AUTO) 0.7 % (0.0-3.0); HEMATOCRIT 54.1 % (42.0-52.0); HEMOGLOBIN 17.4 G/DL (14.2-18.0); LYMPHOCYTES % (AUTO) 18.2 % (20.0-45.0); MEAN CORPUSCULAR VOLUME 86 FL (80-99); MONOCYTES % (AUTO) 8.9 % (1.0-10.0); PLATELET COUNT 144 K/UL (150-450); RED CELL DISTRIBUTION WIDTH 13.2 % (11.6-14.8); WHITE BLOOD COUNT 7.6 K/UL (4.8-10.8)
--- NOTE | 2018-06-02 07:00 | History and Physical Report ---
DATE OF ADMISSION: 05/31/2018 ADDENDUM The patient left AMA and came back within 24 hours. The patient was being treated for bronchitis, shortness of breath, COPD, wheezing and cough and the patient was also homeless. The [facility] for the bronchitis and also for a tapered dose of prednisone for COPD. I have asked Dr. Miguelito Gary to see the patient for the continuation of IV antibiotics. Bola Astorga M.D. DR: Jana JOB#: [id number] CC:
--- NOTE | 2018-06-02 09:11 | Discharge Summary ---
Discharge Summary Discharge Summary _ DATE OF ADMISSION: 05/31/2018 DATE OF DISCHARGE: 06/01/2018 BRIEF HOSPITAL COURSE: Patient is a 73-year-old male, who was just admitted for COPD exacerbation and UTI, however, signed out AGAINST MEDICAL ADVICE. Patient was supposed to go to [facility] for continuation of antibiotics for bronchitis and for tapered dose of prednisone. He was not in agreement and left AGAINST MEDICAL ADVICE. He went back to ED for complaints of shortness of breath. He denied chest pain. Denied back or flank pain. Patient is a smoker and admitted he smoked after he left the hospital. He was admitted to telemetry. He was given antihypertensives and was resumed on p.o. steroid. Full treatment was not carried out as patient again left against medical advise. FINAL DIAGNOSES: Acute bronchitis COPD exacerbation Homelessness Noncompliance with medical treatment as patient keeps on leaving AMA DISPOSITION: Patient left against medical advise. I have been assigned to complete a discharge summary on this account, I was not involved with the patient's management. Kira Choe NP Jun 02, 2018 09:11
--- NOTE | 2018-06-05 12:03 | Cardiology Report ---
APPROVED REPORT EKG Measurement Heart [id number] Normal sinus rhythm Possible Left atrial enlargement Right bundle branch block Left anterior fascicular block Bifascicular block Left ventricular hypertrophy with repolarization abnormality Abnormal ECG
== END 2018-06-01 10:35 | disposition left against medical advice (07) | DRG 192 ==
LOC: EMR 21:16 → 2E 21:19 → EDBEDREQ 21:48
DX: J44.0 Chronic obstructive pulmonary disease with (acute) lower respiratory infection (principal); J44.1 Chronic obstructive pulmonary disease with (acute) exacerbation; J20.9 Acute bronchitis, unspecified; Z59.0 Homelessness; Z91.19 Patient's noncompliance with other medical treatment and regimen; F17.200 Nicotine dependence, unspecified, uncomplicated
CPT/HCPCS: 36415; 80048; 80053; 82248; 85025; 87081; 93005; 94640; 94664; 99285